=== PATIENT | male | born 1945 | race Caucasian/White ===

== ENCOUNTER 2016-10-27 04:50 | Observation (INO) | payer MEDICARE ==
[2016-10-27] MEDS ORDERED: NITROGLYCERIN OINT 1 INCH/GM PACKET TOPICAL STA (05:34)
[2016-10-27] MEDS ORDERED: SODIUM CHLORIDE 0.9% 1,000 ML IV STA (05:34)
[2016-10-27] MEDS ORDERED: MORPHINE SULFATE 4 MG/ML SYRINGE IV STA (05:34)
[2016-10-27] MEDS ORDERED: ONDANSETRON 4 MG/2 ML VIAL IVP STA (05:34)
[2016-10-27 06:14] LABS: Basophils # (A) 0.1 k/uL (0-0.2); Basophils % (A) 1 %; CH 31.7; CHCM 34.9; Eosinophils # (A) 0.1 k/uL (0-0.7); Eosinophils % (A) 2 %; HCT 42.9 % (39.0-53.0); HGB 14.3 gm/dL (13.0-17.5); Luc # (Auto) 0.22; Luc % (Auto) 3; Lymphocytes # (A) 1.7 k/uL (1.0-4.8); Lymphocytes % (A) 24 %; MCH 30.5 pg (25.0-35.0); MCHC 33.4 g/dL (31.0-37.0); MCV 91.1 fL (80.0-100.0); Mean Platelet Volume 7.6; Monocytes # (A) 0.4 k/uL (0-1.0); Monocytes % (A) 6 %; Neutrophils # (A) 4.5 k/uL (1.3-7.7); Neutrophils % (A) 64 %; RBC 4.71 m/uL (4.30-5.90); RDW 13.4 % (11.5-15.5); WBC (Perox) 7.21
[2016-10-27 06:23] LABS: ALT 36 U/L (21-72); AST 18 U/L (17-59); Alkaline Phosphatase 60 U/L (38-126); Amylase <30 U/L (30-110); Anion Gap 9 mmol/L; Blood Urea Nitrogen 17 mg/dL (9-20); Calcium 8.7 mg/dL (8.4-10.2); Carbon Dioxide 28 mmol/L (22-30); Chloride 102 mmol/L (98-107); Glucose 187 mg/dL (74-99); Magnesium 2.1 mg/dL (1.6-2.3); Non-African American GFR(MDRD) >60 (>60 ml/min/1.73 sqM); Potassium 3.2 mmol/L (3.5-5.1); Sodium 139 mmol/L (137-145); Total Bilirubin 0.8 mg/dL (0.2-1.3); Total Protein 6.5 g/dL (6.3-8.2)
[2016-10-27 06:31] LABS: Partial Thromboplastin Time 23.1 sec (22.0-30.0); Prothrombin Time 10.5 sec (9.0-12.0)
[2016-10-27 06:43] LABS: Creatine Kinase 135 U/L (55-170)
[2016-10-27 06:54] LABS: Creatine Kinase MB 1.5 ng/mL (0.0-2.4); Troponin I <0.012 ng/mL (0.000-0.034)
--- NOTE | 2016-10-27 06:58 | ED ---
Chest Pain HPI - General Chief Complaint: Chest Pain Stated Complaint: Chest Pain Time Seen by Provider: 10/27/16 05:28 Source: patient Mode of arrival: wheelchair Limitations: no limitations - History of Present Illness Initial Comments: S pain since 1 AM today woke him up from mom's sleep it's on the left side of his chest it does not radiate he denies any nausea denies any vomiting no cold sweats is quite sharp been happening every 15 minutes for duration less than 1 minute he denies any shortness of breath but chest pain does get worse with deep breaths. He denies any history of firm heart disease he does have a history of for stroke that was 2-3 years ago he does have a history of hypertension and chest pain right now is a 01/06 - Related Data Home Medications Medication Instructions Recorded Confirmed Cholecalciferol [Vitamin D3] 2,000 unit PO DAILY 10/31/14 10/27/16 Zolpidem Tartrate [Ambien] 10 mg PO HS 10/31/14 10/27/16 amLODIPine BESYLATE [Norvasc] 10 mg PO DAILY 10/31/14 10/27/16 metFORMIN HCL [Glucophage] 500 mg PO HS 10/31/14 10/27/16 Benazepril HCl [Lotensin] 40 mg PO DAILY 03/25/15 10/27/16 Bisoprolol-Hctz 5-6.25 mg [Ziac 1 each PO DAILY 03/25/15 10/27/16 5-6.25] Losartan-Hctz 50-12.5 mg [Hyzaar 1 each PO ONCE 03/25/15 10/27/16 50-12.5] Oxybutynin Chloride [Ditropan XL] 5 mg PO DAILY PRN 03/25/15 10/27/16 hydrALAZINE HCL 25 mg PO DAILY 10/27/16 10/27/16 Previous Rx's Medication Instructions Recorded Aspirin 81 mg PO DAILY #30 chewable 03/27/15 Clopidogrel Bisulfate [Plavix] 75 mg PO DAILY #30 tab 03/27/15 Allergies Allergy/AdvReac Type Severity Reaction Status Date / Time venom-wasp [wasp venom] Allergy Swelling Verified 10/27/16 04:59 Review of Systems ROS Statement: Those systems with pertinent positive or pertinent negative responses have been documented in the HPI. ROS Other: All systems not noted in ROS Statement are negative. EKG Findings - EKG Comments: EKG Findings:: It's sinus cardia with sinus arrhythmia, ventricular rate is 58 HI interval is 146 QRS duration is 98 QT/QTc is 460/451, review of this EKG reveals some T-wave flattening in lead [address] elevation or ST depression noticed this EKG Past Medical History Past Medical History: Cancer, CVA/TIA, Diabetes Mellitus, Hyperlipidemia, Hypertension, Osteoarthritis (OA) Additional Past Medical History / Comment(s): pt never takes bld sugar, sleeping disorder, skin lesions positive for basal cell ca (on face) History of Any Multi-Drug Resistant Organisms: None Reported Past Surgical History: Back Surgery, Hernia Repair Additional Past Surgical History / Comment(s): eye surgery - rt eye- metal sutures -per pt, skin lesions removed-basal cell ca,2013 excised lt eye lid lesion with rhomboid advancement flap closure, rt inguinal hernia repair, colonoscopy, lamenectomy Past Anesthesia/Blood Transfusion Reactions: No Reported Reaction Past Psychological History: No Psychological Hx Reported Additional Psychological History / Comment(s): pt is retired,lives at home with his , is independant. Smoking Status: Never smoker Past Alcohol Use History: Occasional Past Drug Use History: None Reported - Past Family History Father Family Medical History: Myocardial Infarction ([place]) Additional Family Medical History / Comment(s): age 59 from [place] Mother Family Medical History: Coronary Artery Disease (CAD), Diabetes Mellitus Additional Family Medical History / Comment(s): cabg General Exam - General Exam Comments Initial Comments: General: The patient is awake and alert, in no distress, and does not appear acutely ill. Skin: Skin is warm and dry and no rashes or lesions are noted. Eye: Pupils are equal, round and reactive to light, extra-ocular movements are intact; there is normal conjunctiva bilaterally. Ears, nose, mouth and throat: There are moist mucous membranes and no oral lesions. Neck: The neck is supple, there is no tenderness or JVD. Cardiovascular: There is a regular rate and rhythm. No murmur, rub or gallop is appreciated. Respiratory: To auscultation bilateral, no wheezing no rhonchi no distress respiratory alvares noticed Gastrointestinal: Soft, non-distended, non-tender abdomen without masses or organomegaly noted. There is no rebound or guarding present. Bowel sounds are unremarkable. Back: There is no tenderness to palpation in the midline. There is no obvious deformity. Musculoskeletal: Normal ROM, no tenderness, There is no pedal edema. There is no calf tenderness or swelling. No cords were appreciated. Neurological: CN II-XII intact, Cranial nerves III through XII are intact. There are no obvious motor or sensory deficits. Coordination appears grossly intact. Speech is normal. Psychiatric: Cooperative, appropriate mood & affect, normal judgment. Limitations: no limitations Course Vital Signs 10/27/16 10/27/16 04:57 06:05 Temperature 97.4 F L Pulse Rate 60 58 L Respiratory 18 18 Rate Blood Pressure 183/89 145/95 O2 Sat by Pulse 96 96 Oximetry Disposition Clinical Impression: Chest pain Disposition: ADMITTED IP TO THIS HOSP Condition: Good
--- NOTE | 2016-10-27 07:23 | XR ---
EXAMINATION TYPE: XR chest 2V DATE OF EXAM: 10/27/2016 6:32 AM COMPARISON: NONE INDICATION: Chest pain TECHNIQUE: Single frontal view of the chest is obtained. FINDINGS: The heart size is normal. The pulmonary vasculature is normal. The lungs are clear. Spondylosis through the thoracic spine. IMPRESSION: 1. No acute pulmonary process.
[2016-10-27] MEDS ORDERED: NITROGLYCERIN SL TABS 0.4 MG TAB SUBLINGUAL PRN (07:30)
[2016-10-27] MEDS ORDERED: HEPARIN SODIUM,PORCINE 5,000 UNIT/ML 1 ML VIAL IV PRN (07:36)
[2016-10-27] MEDS ORDERED: HEPARIN SODIUM,PORCINE 5,000 UNIT/ML 1 ML VIAL IV ONE (07:36)
[2016-10-27] MEDS ORDERED: HEPARIN SODIUM,PORCINE/D5W PMX 25,000 UNIT in DEXTROSE/WATER 1 500ML.BAG IV SCH (07:45)
[2016-10-27] MEDS ORDERED: metFORMIN 500 MG TAB PO SCH (08:00)
[2016-10-27] MEDS ORDERED: BISOPROLOL-HCTZ 5-6.25 MG 1 EACH TAB PO SCH (09:00)
[2016-10-27] MEDS ORDERED: CHOLECALCIFEROL 1,000 UNIT TAB PO SCH (09:00)
[2016-10-27] MEDS ORDERED: amLODIPine 10 MG TAB PO SCH (09:00)
[2016-10-27] MEDS ORDERED: LISINOPRIL 20 MG TAB PO SCH (09:00)
[2016-10-27] MEDS ORDERED: POTASSIUM CHLORIDE ER 20 MEQ TAB.ER PO STA (09:07)
--- NOTE | 2016-10-27 09:44 | CONS ---
DATE OF CONSULTATION: Mr. Gillespie is a 71-year-old male with a history of diabetes, hypertension, hyperlipidemia, who presented with symptoms of chest discomfort. The discomfort woke him up from sleep early this morning, lasted for about 3 hour, subsequently resolved. He came into the emergency room and subsequently admitted. He is reasonably active physically without any exertional chest pain. He denies any dyspnea on exertion. No dizziness. No palpitation. No syncope. No PND, orthopnea or peripheral edema. Apparently he ate chili last night. He has no prior cardiac history and had underwent stress test many years ago and that was unremarkable. His coronary risk factors are remarkable for hypertension, hyperlipidemia, and diabetes. He has not been taking a his statin because of myalgia. He is a nonsmoker. His medications include Ziac 5/6.25 mg daily, aspirin once a day, metformin 500 mg twice a day, amlodipine 5 mg daily, zolpidem, vitamin D and Lotensin 40 mg daily. REVIEW OF SYSTEMS: RESPIRATORY SYSTEM: He has no recent wheezing. No cough. No history of obstructive lung disease. GI SYSTEM: No recent GI bleeding. No peptic ulcer disease. SYSTEM: No dysuria or hematuria. NERVOUS SYSTEM: He has a prior history of stroke, no seizure. PHYSICAL EXAMINATION: He is a 71-year-old male, alert, oriented, in no apparent distress. Blood pressure 159/79 with the heart rate in the high 50s and 60s. HEAD: Normocephalic. EYES: Sclerae anicteric. NECK: Good upstroke. No bruit. No jugular venous distention. LUNGS: Clear to auscultation. HEART: Regular rate and rhythm. S1, S2, no S3, no S4, no murmur or rub. ABDOMEN: Soft, obese, nontender, positive bowel sounds. No organomegaly. EXTREMITIES: No edema. Intact distal pulses. Lab data revealed Troponin less than 0.012. Potassium of 3.2. BUN and creatinine 17 and 1.0. Hemoglobin of 14.3. EKG revealed sinus mechanism, normal axis and intervals with minor nonspecific ST-T wave changes. Chest x-ray revealed no acute changes. IMPRESSION: 1. Symptoms of chest discomfort, has atypical feature for ischemic heart disease, probably gastrointestinal in origin related to the chili he ate in a patient with multiple coronary risk factors. 2. History of hypertension. 3. Diabetes. 4. Hyperlipidemia, not treated because of myalgia. 5. Obesity. RECOMMENDATION: I will stop the heparin and proceed with stress echocardiogram. If there is no evidence of inducible ischemia, then no further cardiac workup will be needed. Thank you for this consult. We will follow with you.
[2016-10-27 12:21] LABS: Glucose,Whole Blood 155 mg/dL (75-99)
[2016-10-27 12:33] VITALS: BP 151/77; PULSE 76; RESP 18; TEMP 97.9
--- NOTE | 2016-10-27 12:36 | ECHOS ---
DATE OF SERVICE: 10/27/2016 AGE: 71Y SEX: M HT: 67" WT: 230 lbs. Protocol Marvin: X Others: Stress Echo Stage: 2 Dur. of Exercise: 3:30 *Heart Rate Blood Pressure *Rest: 66 Rest: 151/76 * *Max. Achieved: 149 Maximum BP: 220/110 85% PMHR: 127 100% PMHR: 149 *METS: - INDICATIONS: Chest pain. MEDICATIONS: - Patient was exercised for a total period of 3 minutes and 30 seconds. The peak heart rate of 149 was achieved. Maximum blood pressure of 220/110 mmHg was noted. Resting EKG shows normal sinus rhythm with ST-T changes noted in the inferolateral leads suggestive of ischemia. Intermittent wide QRS complex beats were noted, which are suggestive of probably PAC with aberrant conduction or PVC cannot be entirely excluded. During exercise about 1.[address] segment depression was noted. Intermittent PACs were noted. ST segment depression persisted for about 4 minutes in the postexercise period. In the postexercise period, intermittent PACs and short run of atrial tachycardia and occasional PVC's were noted. Echocardiographic images reveals a normal left ventricular chamber size with normal left ventricular systolic function. In the immediate postexercise period, normal increase in the wall thickness and contractility is noted. This stress echocardiographic study is negative for stress-induced ischemia. The EKG portion of the stress test is inconclusive to diagnose ischemia because of the resting ST segment abnormalities noted, so 1.[address] segment depression noted, which persisted for about 4 minutes in the postexercise period, intermittent PACs and intermittent wide QRS complex beats were noted. Beats are suggestive of probably aberrantly conducted beats. In the postexercise period, occasional runs of nonsustained atrial tachycardia were noted and occasional couplets were noted.
--- NOTE | 2016-10-27 12:47 | ECHOF ---
Referral Reason:cp MEASUREMENTS -------- HEIGHT: 170.2 cm WEIGHT: 104.3 kg BP: 145/57 RVIDd: 3.1 cm (< 3.3) IVSd: 1.3 cm (0.6 - 1.1) LVIDd: 4.5 cm (3.9 - 5.3) LVPWd: 1.3 cm (0.6 - 1.1) IVSs: 1.6 cm LVIDs: 2.9 cm LVPWs: 1.9 cm LA Diam: 3.8 cm (2.7 - 3.8) LAESV Index (A-L): 30.57 ml/m Ao Diam: 3.7 cm (2.0 - 3.7) AV Cusp: 1.8 cm (1.5 - 2.6) MV EXCURSION: 22.947 mm (> 18.000) MV EF SLOPE: 79 mm/s (70 - 150) EPSS: 0.8 cm MV E Chip: 0.84 m/s MV DecT: 203 ms MV A Chip: 0.59 m/s MV E/A Ratio: 1.42 AR PHT: 1249 ms FINDINGS -------- Sinus rhythm. This was a technically good study. The left ventricular size is normal. There is mild concentric left ventricular hypertrophy. Overall left ventricular systolic function is normal with, an EF between 55 - 60 %. The right ventricle is normal in size. LA is midly dilated 29-33ml/m2. The right atrium is normal in size. Aortic valve is trileaflet and is mildly thickened. There is mild aortic regurgitation. Mild mitral annular calcification present. There is trace mitral regurgitation. The tricuspid valve appears structurally normal. Trace/mild (physiologic) pulmonic regurgitation. The aortic root is dilated measuring 3.7cm. The pericardium is normal. CONCLUSIONS -------- 1. Sinus rhythm. 2. There is mild aortic regurgitation. 3. Mild mitral annular calcification present. 4. There is trace mitral regurgitation. 5. The tricuspid valve appears structurally normal. 6. Trace/mild (physiologic) pulmonic regurgitation. 7. The aortic root is dilated measuring 3.7cm. 8. The pericardium is normal. 9. This was a technically good study. 10. The left ventricular size is normal. 11. There is mild concentric left ventricular hypertrophy. 12. Overall left ventricular systolic function is normal with, an EF between 55 - 60 %. 13. The right ventricle is normal in size. 14. LA is midly dilated 29-33ml/m2. 15. The right atrium is normal in size. 16. Aortic valve is trileaflet and is mildly thickened. HALL MANAGER: Andie Mason RDCS
--- NOTE | 2016-10-27 20:56 | P.HPIM ---
History of Present Illness H&P Date: 10/27/16 Chief Complaint: Chest pain This is a history of physical a 71-year-old white male who is essentially admitted for significant chest pressure. It all started in the middle of the night last night as he was woke up in the middle night and was quite concerned. He has an underlying history of about CVA about 2 years ago. He has been doing quite well and has played golf recently without difficulty. No nausea or vomiting but significant chest pressure which is left-sided. No radiation of the jaw but it was more of a pressure and stabbing type pain. Because of his previous vascular history, he is appropriately admitted for treatment to rule out myocardial infarction. Review of Systems Constitutional: Denies chills, Denies fever Eyes: denies blurred vision, denies pain Ears, nose, mouth and throat: Denies headache, Denies sore throat Cardiovascular: Reports as per HPI, Reports chest pain Respiratory: Denies cough Gastrointestinal: Denies abdominal pain, Denies diarrhea, Denies nausea, Denies vomiting Musculoskeletal: Denies myalgias Past Medical History Past Medical History: Cancer, CVA/TIA, Diabetes Mellitus, Hyperlipidemia, Hypertension Additional Past Medical History / Comment(s): CVA 2014 with slight speech change , unable to tolerate statins-leg pain, sleeping disorder, skin basal cell ca ( on face) with removals, NIDDM type II, right eye blind. History of Any Multi-Drug Resistant Organisms: None Reported Past Surgical History: Back Surgery, Hernia Repair Additional Past Surgical History / Comment(s): eye surgery -left eye- metal sutures, 2013 excised lt eye lid lesion with rhomboid advancement flap closure, rt inguinal hernia repair, colonoscopy, lamenectomy, skin cancer removals. Past Anesthesia/Blood Transfusion Reactions: No Reported Reaction Past Psychological History: No Psychological Hx Reported Additional Psychological History / Comment(s): pt is retired,lives at home with his , is independant. Smoking Status: Never smoker Past Alcohol Use History: Occasional Additional Past Alcohol Use History / Comment(s): Pt states he drinks beer or rum/coke but less than 14 a week. Past Drug Use History: None Reported - Past Family History Father Family Medical History: Myocardial Infarction ([place]) Additional Family Medical History / Comment(s): age 59 from [place] Mother Family Medical History: Coronary Artery Disease (CAD), Diabetes Mellitus Additional Family Medical History / Comment(s): cabg Medications and Allergies Home Medications Medication Instructions Recorded Confirmed Type Cholecalciferol [Vitamin D3] 2,000 unit PO DAILY 10/31/14 10/27/16 History Zolpidem Tartrate [Ambien] 10 mg PO HS 10/31/14 10/27/16 History amLODIPine BESYLATE [Norvasc] 10 mg PO DAILY 10/31/14 10/27/16 History metFORMIN HCL [Glucophage] 500 mg PO BID 10/31/14 10/27/16 History Benazepril HCl [Lotensin] 40 mg PO DAILY 03/25/15 10/27/16 History Bisoprolol-Hctz 5-6.25 mg [Ziac 1 tab PO DAILY 03/25/15 10/27/16 History 5-6.25] Glucosamine Sulfate 500 mg PO DAILY 10/27/16 10/27/16 History Allergies Allergy/AdvReac Type Severity Reaction Status Date / Time venom-wasp [wasp venom] Allergy Swelling Verified 10/27/16 07:15 Physical Exam Vitals: Vital Signs Temp Pulse Pulse Resp BP BP Pulse Ox 10/27/16 12:00 97.9 F 76 18 151/77 95 10/27/16 08:25 97.6 F 54 L 16 159/79 96 10/27/16 08:00 54 L 16 10/27/16 07:54 97.4 F L 51 L 18 157/74 93 L Intake and Output 10/27/16 10/27/16 10/27/16 06:59 14:59 22:59 Intake Total 400 Balance 400 Intake: Oral 400 Other: Voiding Method Toilet Weight 104.5 kg Patient Weight 10/28/16 06:59 Weight 104.5 kg - Constitutional General appearance: obese - EENT Eyes: no abnormal pupil - Neck Neck: no lymphadenopathy, normal ROM - Respiratory Respiratory: bilateral: CTA - Cardiovascular Rhythm: regular Heart sounds: normal: S1, S2 - Gastrointestinal General gastrointestinal: soft, no tenderness - Integumentary Integumentary: no cellulitis - Musculoskeletal Musculoskeletal: gait normal - Psychiatric Psychiatric: appropriate affect, intact judgment & insight Results CBC & Chem 7: 10/27/16 05:59 10/27/16 05:59 Labs: Abnormal Lab Results - Last 24 Hours (Table) 02/28/17 Range/Units 12:18 POC Glucose (mg/dL) 155 H (75-99) mg/dL Thrombosis Risk Factor Assmnt - Choose All That Apply Any of the Below Risk Factors Present?: Yes Each Factor Represents 1 point: Obesity (BMI >25) Each Risk Factor Represents 2 Points: Age 61-74 years, Malignancy Other congenital or acquired thrombophilia - If yes, enter type in comment: No Thrombosis Risk Factor Assessment Total Risk Factor Score: 5 Thrombosis Risk Factor Assessment Level: High Risk Assessment and Plan (1) Chest pain Status: Acute (2) Essential hypertension Status: Acute Plan: We'll go ahead and rule out myocardial infarction. Housekeeping Cleaner consult. I suspect he will need appropriate stress testing. Anticipate discharge in next 24-48 hours. He is a full code at this time and I have discussed reconciling his medications. Time with Patient: Less than 30
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
[2016-10-27] MEDS ORDERED: ZOLPIDEM 10 MG TAB PO SCH (21:00)
[2016-10-28] MEDS ORDERED: ASPIRIN 325 MG TAB PO SCH (09:00)
== END 2016-10-27 13:25 | disposition home or self-care (01) ==
LOC: EC 04:50 → 3OBS 07:30
PROVIDERS: ADMIT Family Medicine; ATTEND Family Medicine
DX: R07.89 Other chest pain (principal); I10 Essential (primary) hypertension; E11.9 Type 2 diabetes mellitus without complications; E66.9 Obesity, unspecified; E78.5 Hyperlipidemia, unspecified; Z82.49 Family history of ischemic heart disease and other diseases of the circulatory system; Z86.73 Personal history of transient ischemic attack (TIA), and cerebral infarction without residual deficits; Z79.899 Other long term (current) drug therapy; Z79.84 Long term (current) use of oral hypoglycemic drugs; Z79.02 Long term (current) use of antithrombotics/antiplatelets; Z79.82 Long term (current) use of aspirin; M19.90 Unspecified osteoarthritis, unspecified site
CPT/HCPCS: 36415; 93005; 93017; 93306; 85379; 83880; 82150; 82550; 80053; 82553; 83690; 83735; 84484; 85025; 85610; 85730; 71020; 99285; 96361 ×2; G0378; C8928; J1644 ×2; Q9957; 93350; 96366

== ENCOUNTER 2019-05-18 20:32 | Observation (INO) | payer MEDICARE, OTHER ==
--- NOTE | 2019-05-18 21:05 | ED ---
General Adult HPI - General Chief complaint: Neuro Symptoms/Deficit Stated complaint: Stroke Time Seen by Provider: 05/18/19 21:03 Source: patient, family Mode of arrival: ambulatory Limitations: no limitations - History of Present Illness Initial comments: This patient is a 74-year-old old man who presents to be evaluated for right- sided weakness. The patient has history of previous stroke he states proximal 4 years ago when he had some mild dysarthria that has subsequently resolved. He states that he was in his usual state of health until about 4 days ago when he noticed he was having pressure type headache the left frontal area. He states that it is moderate, constant, and he has not noted worsening or relieving factors. He attributed to his sinuses. Tonight proximal he 7 PM, patient states that he was having some numbness or tingling that was on the right side of his mouth. He states that it had been there a little bit yesterday but he attributed that to having some dental work done. Patient states that the sensation seemed to go to his right arm and right leg, and then he had difficulty in fastening his pants after using the bathroom. The patient's was a golf outing and when she returned he told her about these symptoms and she brought him here for evaluation. The patient states that he is now feeling back to his baseline in terms of the tingling and his arm coordination. No change in vision, speech or swallowing. Patient has no chest pain or dyspnea. No difficulty extremity symptoms now. Declines analgesia at initial history and physical. Onset/Timin -: hour(s) Location: right, upper extremity, lower extremity Radiation: non-radiation Consistency: now resolved Improves with: none Worsens with: none Associated Symptoms: headaches Treatments Prior to Arrival: none - Related Data Home Medications Medication Instructions Recorded Confirmed Zolpidem Tartrate [Ambien] 10 mg PO HS 10/31/14 05/18/19 amLODIPine BESYLATE [Norvasc] 10 mg PO DAILY 10/31/14 05/18/19 metFORMIN HCL [Glucophage] 1,000 mg PO BID 10/31/14 05/18/19 Bisoprolol-Hctz 5-6.25 mg [Ziac 1 tab PO DAILY 03/25/15 05/18/19 5-6.25 MG] Cholecalciferol [Vitamin D3 (25 1,000 unit PO DAILY 05/18/19 05/18/19 Mcg = 1000 Iu)] Losartan Potassium 100 mg PO DAILY 05/18/19 05/18/19 Potassium Chloride ER [K-Dur 20] 20 meq PO DAILY 05/18/19 05/18/19 Tamsulosin [Flomax] 0.4 mg PO HS 05/18/19 05/18/19 Allergies Allergy/AdvReac Type Severity Reaction Status Date / Time venom-wasp [wasp venom] Allergy Swelling Verified 05/18/19 21:13 Review of Systems ROS Statement: Those systems with pertinent positive or pertinent negative responses have been documented in the HPI. ROS Other: All systems not noted in ROS Statement are negative. 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 Denies: vision change Respiratory: Denies: cough, dyspnea Cardiovascular: Denies: chest pain, palpitations, edema, syncope Gastrointestinal: Denies: abdominal pain, vomiting, diarrhea Genitourinary: Denies: dysuria, hematuria Musculoskeletal: Denies: back pain Skin: Denies: rash Neurological: Reports: as per HPI, headache, weakness, paresthesias Past Medical History Past Medical History: Cancer, CVA/TIA, Diabetes Mellitus, Hyperlipidemia, Hypertension, Sleep Apnea/CPAP/BIPAP Additional Past Medical History / Comment(s): CVA 2014 with slight speech change, unable to tolerate statins-leg pain, sleeping disorder, 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 History of Any Multi-Drug Resistant Organisms: None Reported Past Surgical History: Back Surgery, Bladder Surgery, Hernia Repair, Orthopedic Surgery Additional Past Surgical History / Comment(s): eye surgery -left eye- metal sutures, 2013 excised lt eye lid lesion with rhomboid advancement flap closure, rt inguinal hernia repair, colonoscopy, lamenectomy, skin cancer removals. Past Anesthesia/Blood Transfusion Reactions: No Reported Reaction Past Psychological History: No Psychological Hx Reported Smoking Status: Never smoker Past Alcohol Use History: Occasional Past Drug Use History: None Reported - Past Family History Father Family Medical History: Myocardial Infarction ([place]) Additional Family Medical History / Comment(s): age 59 from [place] Mother Family Medical History: Coronary Artery Disease (CAD), Diabetes Mellitus Additional Family Medical History / Comment(s): cabg General Exam Limitations: no limitations General appearance: alert, in no apparent distress Head exam: Present: atraumatic, normocephalic Eye exam: Present: normal appearance, EOMI. Absent: scleral icterus, conjunctival injection ENT exam: Present: mucous membranes dry Neck exam: Present: normal inspection, full ROM. Absent: meningismus Respiratory exam: Present: normal lung sounds bilaterally. Absent: respiratory distress, wheezes, rales, rhonchi, stridor Cardiovascular Exam: Present: regular rate, normal rhythm, normal heart sounds. Absent: systolic murmur, diastolic murmur, rubs, gallop GI/Abdominal exam: Present: soft. Absent: distended, tenderness, guarding, rebound, rigid, mass Extremities exam: Present: normal inspection, normal capillary refill. Absent: pedal edema, calf tenderness Back exam: Present: normal inspection. Absent: CVA tenderness (R), CVA tender ness (L) Neurological exam: Present: alert, oriented X3, CN II-XII intact. Absent: motor sensory deficit Skin exam: Present: warm, dry, intact, normal color. Absent: rash Course Vital Signs 05/18/19 05/18/19 05/18/19 20:35 20:49 21:01 Temperature 98.2 F Pulse Rate 72 72 69 Respiratory 16 18 18 Rate Blood Pressure 184/83 149/77 157/72 O2 Sat by Pulse 100 96 95 Oximetry EKG Findings - EKG Results: EKG: interpreted by NOLAN, sinus rhythm (With sinus arrhythmia, rate 73 bpm), normal axis, normal QRS, normal ST/T, no acute changes Medical Decision Making - Lab Data Result diagrams: 05/18/19 20:57 05/18/19 20:57 Lab Results 05/18/19 05/18/19 05/18/19 Range/Units 20:57 20:57 20:57 WBC 10.1 (3.8-10.6) k/uL RBC 5.44 (4.30-5.90) m/uL Hgb 17.3 (13.0-17.5) gm/dL Hct 50.1 (39.0-53.0) % MCV 92.1 (80.0-100.0) fL MCH 31.7 (25.0-35.0) pg MCHC 34.4 (31.0-37.0) g/dL RDW 16.5 H (11.5-15.5) % Plt Count 186 (150-450) k/uL Neutrophils % 81 % Lymphocytes % 11 % Monocytes % 5 % Eosinophils % 1 % Basophils % 1 % Neutrophils # 8.1 H (1.3-7.7) k/uL Lymphocytes # 1.2 (1.0-4.8) k/uL Monocytes # 0.5 (0-1.0) k/uL Eosinophils # 0.1 (0-0.7) k/uL Basophils # 0.1 (0-0.2) k/uL Anisocytosis Slight PT 9.7 (9.0-12.0) sec INR 0.9 (<1.2) APTT 22.0 (22.0-30.0) sec Sodium 138 (137-145) mmol/L Potassium 3.6 (3.5-5.1) mmol/L Chloride 101 (98-107) mmol/L Carbon Dioxide 24 (22-30) mmol/L Anion Gap 13 mmol/L BUN 23 H (9-20) mg/dL Creatinine 1.16 (0.66-1.25) mg/dL Est GFR (CKD-EPI)AfAm 72 (>60 ml/min/1.73 sqM) Est GFR (CKD-EPI)NonAf 62 (>60 ml/min/1.73 sqM) Glucose 294 H (74-99) mg/dL POC Glucose (mg/dL) (75-99) mg/dL POC Glu Metal Bench Patternmaker ID Calcium 9.5 (8.4-10.2) mg/dL Total Bilirubin 0.5 (0.2-1.3) mg/dL AST 26 (17-59) U/L ALT 35 (21-72) U/L Alkaline Phosphatase 80 (38-126) U/L Troponin I (0.000-0.034) ng/mL Total Protein 6.9 (6.3-8.2) g/dL Albumin 4.4 (3.5-5.0) g/dL Urine Color Urine Appearance (Clear) Urine pH (5.0-8.0) Ur Specific [place] (1.001-1.035) Urine Protein (Negative) Urine Glucose (UA) (Negative) Urine Ketones (Negative) Urine Blood (Negative) Urine Nitrite (Negative) Urine Bilirubin (Negative) Urine Urobilinogen (<2.0) mg/dL Ur Leukocyte Esterase (Negative) Urine RBC (0-5) /hpf Urine WBC (0-5) /hpf Ur Squamous Epith Cells (0-4) /hpf Urine Bacteria (None) /hpf Hyaline Casts (0-2) /lpf Urine Mucus (None) /hpf Urine Sperm (None) /hpf 05/18/19 05/18/19 05/18/19 Range/Units 20:57 21:04 22:00 WBC (3.8-10.6) k/uL RBC (4.30-5.90) m/uL Hgb (13.0-17.5) gm/dL Hct (39.0-53.0) % MCV (80.0-100.0) fL MCH (25.0-35.0) pg MCHC (31.0-37.0) g/dL RDW (11.5-15.5) % Plt Count (150-450) k/uL Neutrophils % % Lymphocytes % % Monocytes % % Eosinophils % % Basophils % % Neutrophils # (1.3-7.7) k/uL Lymphocytes # (1.0-4.8) k/uL Monocytes # (0-1.0) k/uL Eosinophils # (0-0.7) k/uL Basophils # (0-0.2) k/uL Anisocytosis PT (9.0-12.0) sec INR (<1.2) APTT (22.0-30.0) sec Sodium (137-145) mmol/L Potassium (3.5-5.1) mmol/L Chloride (98-107) mmol/L Carbon Dioxide (22-30) mmol/L Anion Gap mmol/L BUN (9-20) mg/dL Creatinine (0.66-1.25) mg/dL Est GFR (CKD-EPI)AfAm (>60 ml/min/1.73 sqM) Est GFR (CKD-EPI)NonAf (>60 ml/min/1.73 sqM) Glucose (74-99) mg/dL POC Glucose (mg/dL) 320 H (75-99) mg/dL POC Glu Metal Bench Patternmaker Marlon Patel Calcium (8.4-10.2) mg/dL Total Bilirubin (0.2-1.3) mg/dL AST (17-59) U/L ALT (21-72) U/L Alkaline Phosphatase (38-126) U/L Troponin I <0.012 (0.000-0.034) ng/mL Total Protein (6.3-8.2) g/dL Albumin (3.5-5.0) g/dL Urine Color Yellow Urine Appearance Clear (Clear) Urine pH 5.5 (5.0-8.0) Ur Specific [place] 1.017 (1.001-1.035) Urine Protein 1+ H (Negative) Urine Glucose (UA) 4+ H (Negative) Urine Ketones Negative (Negative) Urine Blood Moderate H (Negative) Urine Nitrite Negative (Negative) Urine Bilirubin Negative (Negative) Urine Urobilinogen <2.0 (<2.0) mg/dL Ur Leukocyte Esterase Small H (Negative) Urine RBC 6 H (0-5) /hpf Urine WBC 20 H (0-5) /hpf Ur Squamous Epith Cells <1 (0-4) /hpf Urine Bacteria Rare H (None) /hpf Hyaline Casts 4 H (0-2) /lpf Urine Mucus Rare H (None) /hpf Urine Sperm Rare (None) /hpf Disposition Clinical Impression: TIA (transient ischemic attack), Hyperglycemia due to type 2 diabetes mellitus, Hypertension Disposition: ADMITTED IP TO THIS HOSP Condition: Fair Is patient prescribed a controlled substance at d/c from ED?: No Referrals: Aki Pelaez DO [Primary Care Provider] - 1-2 days
[2019-05-18 21:07] LABS: Glucose,Whole Blood 320 mg/dL (75-99)
[2019-05-18 21:41] LABS: INR 0.9 (<1.2); Prothrombin Time 9.7 sec (9.0-12.0)
[2019-05-18 21:45] LABS: Albumin 4.4 g/dL (3.5-5.0); Calcium 9.5 mg/dL (8.4-10.2); Potassium 3.6 mmol/L (3.5-5.1); Total Bilirubin 0.5 mg/dL (0.2-1.3); Total Protein 6.9 g/dL (6.3-8.2)
[2019-05-18 21:49] LABS: Anisocytosis Slight; Basophils # (A) 0.1 k/uL (0-0.2); Basophils % (A) 1 %; Eosinophils # (A) 0.1 k/uL (0-0.7); Eosinophils % (A) 1 %; HCT 50.1 % (39.0-53.0); HGB 17.3 gm/dL (13.0-17.5); Lymphocytes # (A) 1.2 k/uL (1.0-4.8); Lymphocytes % (A) 11 %; MCH 31.7 pg (25.0-35.0); MCHC 34.4 g/dL (31.0-37.0); MCV 92.1 fL (80.0-100.0); Monocytes # (A) 0.5 k/uL (0-1.0); Monocytes % (A) 5 %; Neutrophils # (A) 8.1 k/uL (1.3-7.7); Neutrophils % (A) 81 %; Platelet Count 186 k/uL (150-450); RBC 5.44 m/uL (4.30-5.90); RDW 16.5 % (11.5-15.5); WBC 10.1 k/uL (3.8-10.6)
--- NOTE | 2019-05-18 21:49 | CT ---
EXAMINATION TYPE: CT brain wo con DATE OF EXAM: 05/18/2019 COMPARISON: 03/26/2015 HISTORY: Right sided numbness CT DLP: 1146.4 mGycm Automated exposure control for dose reduction was used. FINDINGS: There is cerebral cortical atrophy. There is moderate patchy hypodensity in the periventricular white matter. There is 2.5 cm area of cortical hypodensity left occipital lobe. There is no midline shift. There is no mass effect. There is no sign of intracranial hemorrhage. The calvarium is intact. IMPRESSION: EXTENSIVE CHRONIC SMALL VESSEL ISCHEMIA THAT HAS PROGRESSED SLIGHTLY COMPARED TO OLD EXAM. THERE IS O LD LEFT OCCIPITAL LOBE CORTICAL INFARCT THAT IS A CHANGE COMPARED TO OLD EXAM.
--- NOTE | 2019-05-18 21:52 | XR ---
EXAMINATION TYPE: XR chest 2V DATE OF EXAM: 05/18/2019 COMPARISON: 08/12/2017 HISTORY: Altered mental status TECHNIQUE: Frontal and lateral views of the chest are obtained. FINDINGS: Heart and mediastinum are normal. Lungs are clear. There are chest leads. There is spurrin g in the thoracic spine. IMPRESSION: No active cardiopulmonary disease. Normal heart. No change.
[2019-05-18 22:38] LABS: Appearance,Urine Clear (Clear); Bacteria,Urine Rare /hpf; Bilirubin,Urine Negative (Negative); Blood,Urine Moderate (Negative); Color,Urine Yellow; Glucose,Urine (UA) 4+ (Negative); Hyaline Casts,Urine 4 /lpf (0-2); Ketones,Urine Negative (Negative); Leukocyte Esterase,Urine Small (Negative); Mucus,Urine Rare /hpf; Nitrite,Urine Negative (Negative); PH, Urine 5.5 (5.0-8.0); Protein,Urine 1+ (Negative); RBC,Urine 6 /hpf (0-5); Specific Gravity,Urine 1.017 (1.001-1.035); Sperm,Urine Rare /hpf; Squamous Epithelial Cell,Urine <1 /hpf (0-4); Urobilinogen,Urine <2.0 mg/dL (<2.0); WBC,Urine 20 /hpf (0-5)
[2019-05-18] MEDS: INSULIN REGULAR 100 UNIT/ML VIAL SQ STA ×2 (23:07→23:11)
[2019-05-18] MEDS ORDERED: metFORMIN 500 MG TAB PO STA (23:10)
[2019-05-18] MEDS ORDERED: ASPIRIN 325 MG TAB PO STA (23:12)
[2019-05-18] MEDS: SODIUM CHLORIDE 0.9% 1,000 ML IV SCH (23:42)
[2019-05-19 00:21] VITALS: BMI 35.4
[2019-05-19] MEDS: DOCUSATE 100 MG CAP PO SCH ×4 (00:22→23:06)
[2019-05-19] MEDS: ZOLPIDEM 10 MG TAB PO PRN ×2 (00:48→20:35)
[2019-05-19 03:28] LABS: Cholesterol 216 mg/dL (<200); HDL Cholesterol 39 mg/dL (40-60); LDL Cholesterol,Calculated 122 mg/dL (0-99); Triglycerides 275 mg/dL (<150)
[2019-05-19 06:20] LABS: Glucose,Whole Blood 182 mg/dL (75-99)
[2019-05-19] MEDS: INSULIN ASPART (NovoLOG) 100 UNIT/ML VIAL SQ SCH ×4 (06:24→20:54)
[2019-05-19 07:52] LABS: Glucose,Whole Blood 184 mg/dL (75-99)
--- NOTE | 2019-05-19 08:18 | CT ---
EXAMINATION TYPE: CODE STROKE: CT brain wo contr DATE OF EXAM: 05/19/2019 COMPARISON: 05/18/2019 HISTORY: Code Stroke CT DLP: [address] of the brain was performed. The ventricles, basal cisterns and sulci overlying the cerebral convexities demonstrate mild enlargem ent. There is no evidence for intracranial hemorrhage or sulcal effacement. There is decreased attenuation about the periventricular white matter and deep white matter of both c erebral hemispheres, compatible with chronic small vessel ischemia. Differential diagnosis does inclu de demyelination. No mass effects are seen.No midline shift. Osseous calvarium is intact. If symptoms persist consider MRI. IMPRESSION: 1. Age related atrophic and chronic small vessel ischemic change without acute intracranial process s een at this time.
[2019-05-19] MEDS ORDERED: CLOPIDOGREL 75 MG TAB PO STA (09:02)
[2019-05-19] MEDS: amLODIPine 10 MG TAB PO SCH (09:17)
[2019-05-19] MEDS: LOSARTAN 50 MG TAB PO SCH (09:17)
[2019-05-19] MEDS: BISOPROLOL-HCTZ 5-6.25 MG 1 EACH TAB PO SCH (09:17)
[2019-05-19] MEDS: FAMOTIDINE 20 MG TAB PO SCH ×2 (09:18→20:34)
[2019-05-19] MEDS: CHOLECALCIFEROL 1,000 UNIT TAB PO SCH (09:18)
[2019-05-19] MEDS: ATORVASTATIN 80 MG TAB PO SCH (09:18)
[2019-05-19] MEDS: POTASSIUM CHLORIDE ER 20 MEQ TAB.ER PO SCH (09:18)
[2019-05-19] MEDS: metFORMIN 500 MG TAB PO SCH ×2 (09:18→20:54)
[2019-05-19] MEDS: SODIUM CHLORIDE 0.9% 1,000 ML IV SCH ×2 (09:19→16:59)
--- NOTE | 2019-05-19 09:20 | CT ---
EXAMINATION TYPE: CODE STROKE: CTA head neck DATE OF EXAM: 05/19/2019 COMPARISON: None HISTORY: CODE STROKE CT DLP: 456 mGycm CONTRAST: Performed without and with IV Contrast, patient injected with 65 ML mL of Isovue 370. Combination Contrast CTA cervical carotids and [place] CTA cervical carotids with 3-D recons truction Contrast CTA of the cervical carotids was performed 3-D reconstruction imaging obtained at a separate workstation. Right carotid system: Mild plaque is seen of the right common carotid artery. There is mild plaque a lso noted at the carotid bulb and proximal ICA. No significant diameter reduction. ECA is patent. Right vertebral artery appears unremarkable. Left carotid system: Mild plaque is seen of the left common carotid artery. Extensive tortuosity lef t carotid artery. There is moderate plaque also noted at the carotid bulb and proximal ICA. At least 70% diameter reduction suggested. ECA is patent. Left vertebral artery appears unremarkable. IMPRESSION: 1. Tortuosity left internal carotid artery. Greater than 70% stenosis suggested. 2. No hemodynamically significant stenosis of the right carotid system. CTA [place] with 3-D reconstruction Contrast CTA of the [place] was performed 3-D reconstruction imaging obtained at a separate workstation. Vertebrobasilar system as well as intracranial portions of the internal carotid arteries and their ma [place]ma tributaries are patent. I do not see evidence for sizable aneurysm or vascular malformation. Pl ease note MRI provides greater sensitivity and specificity. Visualized brain appears grossly unremar kable. IMPRESSION: 1. No significant abnormality.
[2019-05-19] MEDS: ASPIRIN 325 MG TAB PO SCH (09:30)
--- NOTE | 2019-05-19 12:07 | P.CNNES ---
History of Present Illness Consult date: 05/19/19 Requesting physician: Antwan Servin Reason for Consult: TIA Chief complaint: Right facial and U&LE numbness History of Present Illness: This is a 74 LH male whose vascular risk factors include age, HTN, DM and HL and h/o CVA with mild residual dysarthria. Patient states he does not take any anti platelets or anticoagulants at home. He had a left frontal/periorbital pain for 4 days, which was new. He went to the dentist 2-3 days ago and had a temporary crown put in. He had local anesthesia for the procedure. Since the procedure, he had on and off numbness around and inside the right side of the mouth, so he thought it was the lingering effect of the anesthetic. On 05/18/19 7pm, he went to the bathroom and noted difficulty fastening his pants with then right arm and leg numbness, so came into the ER for evaluation. By the time he presented to the ER, his sensory symptom had resolved. However, earlier this morning around 8am, he noted the same symptom again. Code stroke was called. CT Head was stable. No ICH. CTA Head/Neck did show tortuous LICA with likely >70% stenosis. Interventional neurology started patient on DAPT. He is once again neurologically asymptomatic. He cannot undergo MRI due to steel sutures in the right eye that were put in after a nail was lodged into his eye during an accident. Review of Systems 14-point ROS performed and as per HPI. Neurologically, patient denies decreased level or loss of consciousness, seizure, changes in vision, diplopia, amaurosis, changes in hearing, facial droop, ptosis, vertigo, hearing loss, tinnitus, dysarthria, dysphagia, aphasia, other focal numbness/weakness not mentioned above, tremors, bowel/bladder incontinence or ataxia. 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 History of Any Multi-Drug Resistant Organisms: None Reported Past Surgical History: Back Surgery, Bladder Surgery, Hernia Repair, Orthopedic Surgery Additional Past Surgical History / Comment(s): eye surgery -left eye- metal sutures, 2013 excised lt eye lid lesion with rhomboid advancement flap closure, rt inguinal hernia repair, colonoscopy, lamenectomy, skin cancer removals. Past Anesthesia/Blood Transfusion Reactions: No Reported Reaction Past Psychological History: No Psychological Hx Reported Additional Psychological History / Comment(s): pt is retired,lives at home with his , is independant. Smoking Status: Never smoker Past Alcohol Use History: Occasional Additional Past Alcohol Use History / Comment(s): Pt states he drinks beer or rum/coke but less than 14 a week. Past Drug Use History: None Reported - Past Family History Father Family Medical History: Myocardial Infarction ([place]) Additional Family Medical History / Comment(s): age 59 from [place] Mother Family Medical History: Coronary Artery Disease (CAD), Diabetes Mellitus Additional Family Medical History / Comment(s): cabg Medications and Allergies Home Medications Medication Instructions Recorded Confirmed Type Zolpidem Tartrate [Ambien] 10 mg PO HS 10/31/14 05/18/19 History amLODIPine BESYLATE [Norvasc] 10 mg PO DAILY 10/31/14 05/18/19 History metFORMIN HCL [Glucophage] 1,000 mg PO BID 10/31/14 05/18/19 History Bisoprolol-Hctz 5-6.25 mg [Ziac 1 tab PO DAILY 03/25/15 05/18/19 History 5-6.25 MG] Cholecalciferol [Vitamin D3 (25 1,000 unit PO DAILY 05/18/19 05/18/19 History Mcg = 1000 Iu)] Losartan Potassium 100 mg PO DAILY 05/18/19 05/18/19 History Potassium Chloride ER [K-Dur 20] 20 meq PO DAILY 05/18/19 05/18/19 History Tamsulosin [Flomax] 0.4 mg PO HS 05/18/19 05/18/19 History Allergies Allergy/AdvReac Type Severity Reaction Status Date / Time venom-wasp [wasp venom] Allergy Swelling Verified 05/18/19 21:13 Physical Examination - Vital Signs Vital Signs: Vital Signs Temp Pulse Pulse Resp BP BP Pulse Ox 05/19/19 10:16 97.6 F 60 16 177/86 97 05/19/19 08:16 97.5 F L 54 L 16 182/84 95 05/19/19 08:00 97.5 F L 61 16 173/98 96 05/19/19 04:00 98.3 F 58 L 18 169/94 94 L 05/19/19 00:00 98.5 F 66 18 176/89 93 L 05/18/19 23:38 98 F 59 L 18 185/75 96 05/18/19 23:31 98.2 F 18 176/89 93 L 05/18/19 21:01 69 18 157/72 95 05/18/19 20:49 72 18 149/77 96 05/18/19 20:35 98.2 F 72 16 184/83 100 Intake and Output 05/18/19 05/19/19 05/19/19 22:59 06:59 14:59 Intake Total 60 Balance 60 Intake: Oral 60 Other: Voiding Method Toilet # Voids 1 Weight 102.5 kg 102.5 kg Gen NAD Pleasant and cooperative HEENT NCAT Sclera without icterus O/P clear Neck Supple No carotid bruit Cor RRR no m/r/g Lungs CTAB Abd Soft NTND +BS Ext Warm to touch No edema Neuro MS A+Ox4 Normal fluency Able to follow all commands CN Pupils reactive Blinks to threat bilaterally no APD EOMI no nystagmus or DERECK No facial asymmetry [place]'s symmetric Hearing intact to normal voice bilaterally Speech minimally dysarthric Equal elevation of palate Tongue midline Sym shrug and SCM bilaterally Motor Normal bulk/tone No pronator or leg drift No tremors Strength 5/5 sym throughout Sens Intact to LT x4 No neglect or extinction Coord No dysmetria on FTN bilaterally DTRs 2+/4 sym throughout Toes downgoing bilaterally No clonus at achilles Gait Deferred NIHSS 10=1 total 1 Results - Laboratory Findings CBC and BMP: 05/18/19 20:57 05/18/19 20:57 Abnormal Lab Findings: Abnormal Labs 05/18/19 05/18/19 05/18/19 20:57 20:57 21:04 RDW 16.5 H Neutrophils # 8.1 H BUN 23 H Glucose 294 H POC Glucose (mg/dL) 320 H Triglycerides Cholesterol LDL Cholesterol, Calc HDL Cholesterol Urine Protein Urine Glucose (UA) Urine Blood Ur Leukocyte Esterase Urine RBC Urine WBC Urine Bacteria Hyaline Casts Urine Mucus 05/18/19 05/19/19 05/19/19 22:00 02:55 06:19 RDW Neutrophils # BUN Glucose POC Glucose (mg/dL) 182 H Triglycerides 275 H Cholesterol 216 H LDL Cholesterol, Calc 122 H HDL Cholesterol 39 L Urine Protein 1+ H Urine Glucose (UA) 4+ H Urine Blood Moderate H Ur Leukocyte Esterase Small H Urine RBC 6 H Urine WBC 20 H Urine Bacteria Rare H Hyaline Casts 4 H Urine Mucus Rare H 05/19/19 07:49 RDW Neutrophils # BUN Glucose POC Glucose (mg/dL) 184 H Triglycerides Cholesterol LDL Cholesterol, Calc HDL Cholesterol Urine Protein Urine Glucose (UA) Urine Blood Ur Leukocyte Esterase Urine RBC Urine WBC Urine Bacteria Hyaline Casts Urine Mucus - Diagnostic Findings Additional findings: CT Head wo cont 05/19/19. Stable c/w 05/18/19 exam. No ICH. CTA Head/Neck 05/19/19. Tortuous LICA >70% stenosis. No LVO. CT Head wo cont 05/18/19. Extensive subcortical white matter changes c/w severe chronic small vessel disease. Old left occipital ischemic infarct. I have reviewed neuroimages myself. Assessment and Plan Assessment: Recurrent right sided TIA with LICA >70% stenosis on CTA Plan: -Cannot undergo MRI due to steel sutures in right eye -CTA results d/w patient -Recommend vascular surgery consultation for LICA >70% stenosis -Continue aspirin and clopidogrel pending vascular surgery consult -TTE -LDL 122 not at goal. On max atorvastatin 80mg po qhs -May treat BP to normotensive range as he is currently neurologically asymptomatic but avoid hypotension -PT/OT/SP per protocol -Stroke education given -DVT prophylaxis -d/w patient in detail. All questions answered -Neurology will be available again on 05/22/19. Thank you for this consultation. Please call with ?. Time with Patient: Greater than 30 (Time spent in direct patient care, greater than 50% of which was spent in [id number] counseling and coordination of care: 70 minutes)
[2019-05-19 12:14] LABS: Glucose,Whole Blood 185 mg/dL (75-99)
--- NOTE | 2019-05-19 13:40 | P.HPIM ---
History of Present Illness H&P Date: 05/19/19 Chief Complaint: TIA. This is a 74-year-old male one of Dr. Pelaez with a previous medical history significant for hypertension and hypertensive cardio vascular disease, hyperlipidemia, history of diabetes mellitus type 2, enlarged prostate, insomnia, obesity, patient presented to the emergency department at [facility] today with increased right facial numbness as well as right arm and right leg numbness, patient stated that this is started about a month ago when he was [place] in [place] when he developed to have a significant numbness to the angle of the mouth and right side this is lasts for a few seconds and disappeared after that however a week ago developed to have an increased numbness as well as increased numbness in the right arm or right leg yesterday got worse and asked his to drive him to the ER for evaluation he was seen in the emergency department and underwent computed tomography scan of the brain did not show any evidence of acute abnormalities, it did show an old left occipital infarct and a chronic white matter changes, however because of the presentation he was admitted to the hospital for evaluation of TIA/CVA, neuro check was obtained neurology consultation was obtained along with echocardiogram. Today in the morning while the patient on the floor he developed to have a significant numbness on the right side of the body a code stroke was called and the patient underwent CT scan of the brain that was negative for acute infarct or bleed CT angiography showed greatr than 70% stenosis of the left carotid artery he was seen in consultation by neurology was placed on aspirin and Plavix and he was recommended to see a vascular surgeon with risk factor modification he was started on statin in the form of Lipitor 80 mg orally once every day. Review of Systems Constitutional: Reports weight gain, Denies chills, Denies chronic headaches, Denies lethargy, Denies malaise, Denies weakness Eyes: right loss of vision (Secondary to nail in the right eye followed by a retinal detachment years later.) Ears: deny: decreased hearing Ears, nose, mouth and throat: Reports vertigo, Denies dysphagia, Denies neck lump, Denies sore throat Cardiovascular: Reports decreased exercise tolerance, Reports dyspnea on exertion, Reports lightheadedness, Denies chest pain, Denies orthopnea, Denies rapid heart beat, Denies shortness of breath, Denies syncope Respiratory: Reports sleep apnea, Reports snoring, Denies congestion, Denies cough, Denies cough with sputum, Denies home oxygen, Denies wheezing Gastrointestinal: Denies abdominal pain, Denies bloating, Denies BRBPR, Denies heartburn, Denies loss of appetite, Denies melena, Denies nausea, Denies vomiting Genitourinary: Reports nocturia, Denies dysuria Musculoskeletal: Denies myalgias Musculoskeletal: absent: ankle pain, ankle stiffness, ankle swelling, elbow pain, elbow stiffness, elbow swelling, foot pain, foot stiffness, foot swelling, hand pain, hand stiffness, hand swelling, hip pain, hip stiffness, hip swelling, knee pain, knee stiffness, knee swelling, shoulder pain, shoulder stiffness, shoulder swelling, wrist pain, wrist stiffness, wrist swelling Integumentary: Denies pruritus, Denies rash Neurological: Reports numbness, Reports tingling, Denies change in speech, Denies confusion, Denies gait dysfunction, Denies migraines, Denies motor disturbance, Denies transient paralysis, Denies tremors, Denies vertigo, Denies weakness, Denies visual changes Psychiatric: Denies anxiety, Denies depression Endocrine: Denies fatigue, Denies weight change Past Medical History Past Medical History: Cancer, CVA/TIA, Diabetes Mellitus, Hyperlipidemia, Hypertension, Sleep Apnea/CPAP/BIPAP Additional Past Medical History / Comment(s): CVA 2014 with slight speech change, unable to tolerate statins-leg pain, sleeping disorder, 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 History of Any Multi-Drug Resistant Organisms: None Reported Past Surgical History: Back Surgery, Bladder Surgery, Hernia Repair, Orthopedic Surgery Additional Past Surgical History / Comment(s): eye surgery -left eye- metal sutures, 2013 excised lt eye lid lesion with rhomboid advancement flap closure, rt inguinal hernia repair, colonoscopy, lamenectomy, skin cancer removals. Past Anesthesia/Blood Transfusion Reactions: No Reported Reaction Past Psychological History: No Psychological Hx Reported Additional Psychological History / Comment(s): pt is retired,lives at home with his , is independant. Smoking Status: Never smoker Past Alcohol Use History: Occasional Additional Past Alcohol Use History / Comment(s): Pt states he drinks beer or rum/coke but less than 14 a week. Past Drug Use History: None Reported - Past Family History Father Family Medical History: Myocardial Infarction ([place]) (Father at age of 59 from [place].) Additional Family Medical History / Comment(s): age 59 from [place] Mother Family Medical History: Coronary Artery Disease (CAD) (Mother at age of 83 from CAD and congestive heart failure and she was diabetic.), Diabetes Mellitus Additional Family Medical History / Comment(s): cabg Sister(s) Family Medical History: No Reported History (Patient has 2 sisters no major medical problems.) Son(s) Family Medical History: No Reported History (Patient has 2 sons no major medical problems.) Medications and Allergies Home Medications Medication Instructions Recorded Confirmed Type Zolpidem Tartrate [Ambien] 10 mg PO HS 10/31/14 05/18/19 History amLODIPine BESYLATE [Norvasc] 10 mg PO DAILY 10/31/14 05/18/19 History metFORMIN HCL [Glucophage] 1,000 mg PO BID 10/31/14 05/18/19 History Bisoprolol-Hctz 5-6.25 mg [Ziac 1 tab PO DAILY 03/25/15 05/18/19 History 5-6.25 MG] Cholecalciferol [Vitamin D3 (25 1,000 unit PO DAILY 05/18/19 05/18/19 History Mcg = 1000 Iu)] Losartan Potassium 100 mg PO DAILY 05/18/19 05/18/19 History Potassium Chloride ER [K-Dur 20] 20 meq PO DAILY 05/18/19 05/18/19 History Tamsulosin [Flomax] 0.4 mg PO HS 05/18/19 05/18/19 History Allergies Allergy/AdvReac Type Severity Reaction Status Date / Time venom-wasp [wasp venom] Allergy Swelling Verified 05/18/19 21:13 Physical Exam Vitals: Vital Signs Temp Pulse Pulse Resp BP BP Pulse Ox 05/19/19 12:16 97.7 F 69 16 187/82 96 05/19/19 10:16 97.6 F 60 16 177/86 97 05/19/19 08:16 97.5 F L 54 L 16 182/84 95 05/19/19 08:00 97.5 F L 61 16 173/98 96 05/19/19 04:00 98.3 F 58 L 18 169/94 94 L 05/19/19 00:00 98.5 F 66 18 176/89 93 L 05/18/19 23:38 98 F 59 L 18 185/75 96 05/18/19 23:31 98.2 F 18 176/89 93 L 05/18/19 21:01 69 18 157/72 95 05/18/19 20:49 72 18 149/77 96 05/18/19 20:35 98.2 F 72 16 184/83 100 Intake and Output 05/18/19 05/19/19 05/19/19 22:59 06:59 14:59 Intake Total 60 Balance 60 Intake: Oral 60 Other: Voiding Method Toilet # Voids 1 Weight 102.5 kg 102.5 kg - Constitutional General appearance: obese - EENT Eyes: anicteric sclerae, EOMI, PERRLA, no ptosis, no scleral icterus, normal appearance ENT: hearing grossly normal, NA/AT, normal oropharynx, no thrush Ears: bilateral: normal - Neck Neck: no lymphadenopathy, normal ROM, no rigidity, no stridor, no thyromegaly Carotids: left: upstroke delayed Thyroid: bilateral: normal size - Respiratory Respiratory: bilateral: diminished, negative: dullness, rales, rhonchi, wheezing , prolonged expiration, prolonged inspiration - Cardiovascular Rhythm: regular Heart sounds: normal: S1, S2 Abnormal Heart Sounds: systolic murmur, no S3 Gallop, no S4 Gallop, no click - Gastrointestinal General gastrointestinal: normal bowel sounds, soft, no splenomegaly, no tenderness, no umbilical hernia, no ventral hernia - Integumentary Integumentary: normal, normal turgor - Neurologic Neurologic: CNII-XII intact - Musculoskeletal Musculoskeletal: gait normal, strength equal bilaterally - Psychiatric Psychiatric: A&O x's 3, appropriate affect, intact judgment & insight Results CBC & Chem 7: 05/18/19 20:57 05/18/19 20:57 Labs: Abnormal Lab Results - Last 24 Hours (Table) 05/18/19 05/18/19 05/18/19 Range/Units 20:57 20:57 21:04 RDW 16.5 H (11.5-15.5) % Neutrophils # 8.1 H (1.3-7.7) k/uL BUN 23 H (9-20) mg/dL Glucose 294 H (74-99) mg/dL POC Glucose (mg/dL) 320 H (75-99) mg/dL Triglycerides (<150) mg/dL Cholesterol (<200) mg/dL LDL Cholesterol, Calc (0-99) mg/dL HDL Cholesterol (40-60) mg/dL Urine Protein (Negative) Urine Glucose (UA) (Negative) Urine Blood (Negative) Ur Leukocyte Esterase (Negative) Urine RBC (0-5) /hpf Urine WBC (0-5) /hpf Urine Bacteria (None) /hpf Hyaline Casts (0-2) /lpf Urine Mucus (None) /hpf 05/18/19 05/19/19 05/19/19 Range/Units 22:00 02:55 06:19 RDW (11.5-15.5) % Neutrophils # (1.3-7.7) k/uL BUN (9-20) mg/dL Glucose (74-99) mg/dL POC Glucose (mg/dL) 182 H (75-99) mg/dL Triglycerides 275 H (<150) mg/dL Cholesterol 216 H (<200) mg/dL LDL Cholesterol, Calc 122 H (0-99) mg/dL HDL Cholesterol 39 L (40-60) mg/dL Urine Protein 1+ H (Negative) Urine Glucose (UA) 4+ H (Negative) Urine Blood Moderate H (Negative) Ur Leukocyte Esterase Small H (Negative) Urine RBC 6 H (0-5) /hpf Urine WBC 20 H (0-5) /hpf Urine Bacteria Rare H (None) /hpf Hyaline Casts 4 H (0-2) /lpf Urine Mucus Rare H (None) /hpf 05/19/19 05/19/19 Range/Units 07:49 12:08 RDW (11.5-15.5) % Neutrophils # (1.3-7.7) k/uL BUN (9-20) mg/dL Glucose (74-99) mg/dL POC Glucose (mg/dL) 184 H 185 H (75-99) mg/dL Triglycerides (<150) mg/dL Cholesterol (<200) mg/dL LDL Cholesterol, Calc (0-99) mg/dL HDL Cholesterol (40-60) mg/dL Urine Protein (Negative) Urine Glucose (UA) (Negative) Urine Blood (Negative) Ur Leukocyte Esterase (Negative) Urine RBC (0-5) /hpf Urine WBC (0-5) /hpf Urine Bacteria (None) /hpf Hyaline Casts (0-2) /lpf Urine Mucus (None) /hpf Thrombosis Risk Factor Assmnt - DVT/VTE Prophylaxis DVT/VTE Prophylaxis: Pharmacologic Prophylaxis ordered, Mechanical Prophylaxis ordered - Choose All That Apply Other Risk Factors: Yes Each Risk Factor Represents 2 Points: Age 61-74 years Thrombosis Risk Factor Assessment Total Risk Factor Score: 2 Thrombosis Risk Factor Assessment Level: Low Risk Assessment and Plan Assessment: Assessment and plan: 1. TIA /possible CVA in the distribution of left middle cerebral artery. Continue neuro check every 2 hours for the next 24 hours, continue aspirin 325 mg once every day, Plavix 75 mg once every day, Lipitor 80 mg once every day, tight control of diabetes as well as blood pressure control vascular surgery evaluation for left carotid stenosis. Patient could not go for MRI due to steel suture in his right eye, cannot 100% the positive for an acute stroke, consider TRINA after a transthoracic echocardiogram. 2. 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 Continue Lipitor 80 mg once every day aspirin and Plavix for secondary stroke prevention, vascular surgery for follow-up. 3. History of CVA in the past. Continue treatment as in paragraph #1. 4. Hypertension and hypertensive cardiovascular disease. Continue patient on Ziac 5/6.25 mg orally once every day, losartan 100 mg orally once every day, amlodipine 10 mg orally once every day. 5. Hyperlipidemia. Continue patient on Lipitor 80 mg orally once every day. 6. Enlarged prostate. Continue Flomax 0.4 mg orally once every day. 7. Obesity with obstructive sleep apnea. Currently on CPAP, continue weight loss. 8. Diabetes mellitus type 2. Continue metformin 500 mg orally twice every day after 48 hours from CTA. Continue sliding scale insulin for now. 9. 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 10. DVT prophylaxis. Bilateral knee-high BIN hose as well as heparin 5000 units subcutaneously every 8 hours. 12. GI prophylaxis. Continue PPI. 13. Admit to inpatient. Estimate a length of stay 2 midnights. 14. Patient is full code.
--- NOTE | 2019-05-19 16:44 | P.GSCN ---
History of Present Illness Consult date: 05/19/19 Reason for Consult: Carotid stenosis. Requesting physician: Marlon Sawyer History of present illness: Patient is a 74-year-old male who presented to the to the hospital complaining of right arm and leg numbness/weakness. He has had similar events in the past and all have lasted for a relatively short period of time. During his hospital stay he had another similar episode for which a code stroke was called. Com puted tomography scan of the brain demonstrated no evidence of intracranial bleed or infarct changes of the brain. CTA suggested left ICA stenosis greater than 70% with severe tortuosity also being noted. Social history is unremarkable for tobacco use. Patient denies any history of coronary artery disease. I taken the liberty of ordering a carotid duplex. If no significant disease is noted at the cervical level then catheter directed angiography would be most beneficial to evaluate the more distal portion of the ICA. I agree with aspirin and statin therapy. A shunt may also benefit from the use of anticoagulants. Thank you very much for allowing me to participate in the care of your patient. I'll follow this patient along with you during his hospital stay. 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 History of Any Multi-Drug Resistant Organisms: None Reported Past Surgical History: Back Surgery, Bladder Surgery, Hernia Repair, Orthopedic Surgery Additional Past Surgical History / Comment(s): eye surgery -left eye- metal sutures, 2013 excised lt eye lid lesion with rhomboid advancement flap closure, rt inguinal hernia repair, colonoscopy, lamenectomy, skin cancer removals. Past Anesthesia/Blood Transfusion Reactions: No Reported Reaction Past Psychological History: No Psychological Hx Reported Additional Psychological History / Comment(s): pt is retired,lives at home with his , is independant. Smoking Status: Never smoker Past Alcohol Use History: Occasional Additional Past Alcohol Use History / Comment(s): Pt states he drinks beer or rum/coke but less than 14 a week. Past Drug Use History: None Reported - Past Family History Sister(s) Family Medical History: No Reported History (Patient has 2 sisters no major medical problems.) Son(s) Family Medical History: No Reported History (Patient has 2 sons no major medical problems.) Father Family Medical History: Myocardial Infarction ([place]) (Father at age of 59 from [place].) Additional Family Medical History / Comment(s): age 59 from [place] Mother Family Medical History: Coronary Artery Disease (CAD) (Mother at age of 83 from CAD and congestive heart failure and she was diabetic.), Diabetes Mellitus Additional Family Medical History / Comment(s): cabg Medications and Allergies Home Medications Medication Instructions Recorded Confirmed Type Zolpidem Tartrate [Ambien] 10 mg PO HS 10/31/14 05/18/19 History amLODIPine BESYLATE [Norvasc] 10 mg PO DAILY 10/31/14 05/18/19 History metFORMIN HCL [Glucophage] 1,000 mg PO BID 10/31/14 05/18/19 History Bisoprolol-Hctz 5-6.25 mg [Ziac 1 tab PO DAILY 03/25/15 05/18/19 History 5-6.25 MG] Cholecalciferol [Vitamin D3 (25 1,000 unit PO DAILY 05/18/19 05/18/19 History Mcg = 1000 Iu)] Losartan Potassium 100 mg PO DAILY 05/18/19 05/18/19 History Potassium Chloride ER [K-Dur 20] 20 meq PO DAILY 05/18/19 05/18/19 History Tamsulosin [Flomax] 0.4 mg PO HS 05/18/19 05/18/19 History Allergies Allergy/AdvReac Type Severity Reaction Status Date / Time venom-wasp [wasp venom] Allergy Swelling Verified 05/18/19 21:13 Surgical - Exam Osteopathic Statement: *. No significant issues noted on an osteopathic structural exam other than those noted in the History and Physical/Consult. Vital Signs Temp Pulse Resp BP Pulse Ox 98.2 F 72 16 184/83 100 05/18/19 20:35 05/18/19 20:35 05/18/19 20:35 05/18/19 20:35 05/18/19 20:35 Results - Labs 05/18/19 20:57 05/18/19 20:57 Abnormal Lab Results - Last 24 Hours (Table) 05/18/19 05/18/19 05/18/19 Range/Units 20:57 20:57 21:04 RDW 16.5 H (11.5-15.5) % Neutrophils # 8.1 H (1.3-7.7) k/uL BUN 23 H (9-20) mg/dL Glucose 294 H (74-99) mg/dL POC Glucose (mg/dL) 320 H (75-99) mg/dL Triglycerides (<150) mg/dL Cholesterol (<200) mg/dL LDL Cholesterol, Calc (0-99) mg/dL HDL Cholesterol (40-60) mg/dL Urine Protein (Negative) Urine Glucose (UA) (Negative) Urine Blood (Negative) Ur Leukocyte Esterase (Negative) Urine RBC (0-5) /hpf Urine WBC (0-5) /hpf Urine Bacteria (None) /hpf Hyaline Casts (0-2) /lpf Urine Mucus (None) /hpf 05/18/19 05/19/19 05/19/19 Range/Units 22:00 02:55 06:19 RDW (11.5-15.5) % Neutrophils # (1.3-7.7) k/uL BUN (9-20) mg/dL Glucose (74-99) mg/dL POC Glucose (mg/dL) 182 H (75-99) mg/dL Triglycerides 275 H (<150) mg/dL Cholesterol 216 H (<200) mg/dL LDL Cholesterol, Calc 122 H (0-99) mg/dL HDL Cholesterol 39 L (40-60) mg/dL Urine Protein 1+ H (Negative) Urine Glucose (UA) 4+ H (Negative) Urine Blood Moderate H (Negative) Ur Leukocyte Esterase Small H (Negative) Urine RBC 6 H (0-5) /hpf Urine WBC 20 H (0-5) /hpf Urine Bacteria Rare H (None) /hpf Hyaline Casts 4 H (0-2) /lpf Urine Mucus Rare H (None) /hpf 05/19/19 05/19/19 Range/Units 07:49 12:08 RDW (11.5-15.5) % Neutrophils # (1.3-7.7) k/uL BUN (9-20) mg/dL Glucose (74-99) mg/dL POC Glucose (mg/dL) 184 H 185 H (75-99) mg/dL Triglycerides (<150) mg/dL Cholesterol (<200) mg/dL LDL Cholesterol, Calc (0-99) mg/dL HDL Cholesterol (40-60) mg/dL Urine Protein (Negative) Urine Glucose (UA) (Negative) Urine Blood (Negative) Ur Leukocyte Esterase (Negative) Urine RBC (0-5) /hpf Urine WBC (0-5) /hpf Urine Bacteria (None) /hpf Hyaline Casts (0-2) /lpf Urine Mucus (None) /hpf Diabetes panel 05/18/19 05/19/19 Range/Units 20:57 02:55 Sodium 138 (137-145) mmol/L Potassium 3.6 (3.5-5.1) mmol/L Chloride 101 (98-107) mmol/L Carbon Dioxide 24 (22-30) mmol/L BUN 23 H (9-20) mg/dL Creatinine 1.16 (0.66-1.25) mg/dL Glucose 294 H (74-99) mg/dL Calcium 9.5 (8.4-10.2) mg/dL AST 26 (17-59) U/L ALT 35 (21-72) U/L Alkaline Phosphatase 80 (38-126) U/L Total Protein 6.9 (6.3-8.2) g/dL Albumin 4.4 (3.5-5.0) g/dL Triglycerides 275 H (<150) mg/dL HDL Cholesterol 39 L (40-60) mg/dL Calcium panel 05/18/19 Range/Units 20:57 Calcium 9.5 (8.4-10.2) mg/dL Albumin 4.4 (3.5-5.0) g/dL Pituitary panel 05/18/19 Range/Units 20:57 Sodium 138 (137-145) mmol/L Potassium 3.6 (3.5-5.1) mmol/L Chloride 101 (98-107) mmol/L Carbon Dioxide 24 (22-30) mmol/L BUN 23 H (9-20) mg/dL Creatinine 1.16 (0.66-1.25) mg/dL Glucose 294 H (74-99) mg/dL Calcium 9.5 (8.4-10.2) mg/dL Adrenal panel 05/18/19 Range/Units 20:57 Sodium 138 (137-145) mmol/L Potassium 3.6 (3.5-5.1) mmol/L Chloride 101 (98-107) mmol/L Carbon Dioxide 24 (22-30) mmol/L BUN 23 H (9-20) mg/dL Creatinine 1.16 (0.66-1.25) mg/dL Glucose 294 H (74-99) mg/dL Calcium 9.5 (8.4-10.2) mg/dL Total Bilirubin 0.5 (0.2-1.3) mg/dL AST 26 (17-59) U/L ALT 35 (21-72) U/L Alkaline Phosphatase 80 (38-126) U/L Total Protein 6.9 (6.3-8.2) g/dL Albumin 4.4 (3.5-5.0) g/dL - Imaging CT scan - abdomen: report reviewed, image reviewed Additional studies: CTA review demonstrates no significant carotid bulb stenosis. The carotid bulb is at the C3-C4 level. The patient does have extreme tortuosity in a loop at the C1-C2 level. On axial images I do not see any significant stenosis and I believe the stenosis identified may be artifactual.
[2019-05-19] MEDS: HEPARIN SODIUM,PORCINE 5,000 UNIT/ML 1 ML VIAL SQ SCH ×2 (16:52→23:12)
[2019-05-19 17:18] LABS: Glucose,Whole Blood 180 mg/dL (75-99)
--- NOTE | 2019-05-19 17:30 | US ---
EXAMINATION TYPE: US carotid duplex BILAT DATE OF EXAM: 05/19/2019 COMPARISON: NONE CLINICAL HISTORY: carotid stenosis. TIA EXAM MEASUREMENTS: RIGHT: Peak Systolic Velocity (PSV) cm/sec ----- Right CCA: 73.5 ----- Right ICA: 66.9 ----- Right ECA: 129.1 ICA/CCA ratio: 0.9 RIGHT: End Diastole cm/sec ----- Right CCA: 13.1 ----- Right ICA: 16.4 ----- Right ECA: 0.0 LEFT: Peak Systolic Velocity (PSV) cm/sec ----- Left CCA: 91.1 ----- Left ICA: 71.3 ----- Left ECA: 88.5 ICA/CCA ratio: 0.8 LEFT: End Diastole cm/sec ----- Left CCA: 15.7 ----- Left ICA: 13.1 ----- Left ECA: 0.0 VERTEBRALS (direction of flow): Right Vertebral: Antegrade Left Vertebral: Antegrade Rhythm: Normal Mild plaque bilateral bifurcations. Tortuous left ICA. No evidence of significant stenosis IMPRESSION: There is antegrade flow in the vertebral arteries. Bilateral plaque formation. Images and measurements suggest close to 50% stenosis in both internal carotid arteries. There is 50- 70% stenosis in the right external carotid artery. Criteria for Assigning % of Stenosis / Diameter reduction (Estimation based on the indirect measurements of the internal carotid artery velocities (ICA PSV). 1. Normal (no stenosis)=ICA PSV < 125 cm/s: ratio < 2.0: ICA EDV<40 cm/s. 2. Less than 50% stenosis=ICA PSV < 125 cm/s: ratio < 2.0: ICA EDV<40 cm/s. 3. 50 to 69% stenosis=ICA PSV of 125 to 230 cm/s: ration 2.0 ? 4.0: ICA EDV 40-100 cm/s. 4. Greater than 70% stenosis to near occlusion= ICA PSV > 230 cm/s: ratio > 4.0: ICA EDV > 100 cm/s. 5. Near occlusion= ICA PSV velocities may be low or undetectable: variable ratio and ICA EDV. 6. Total occlusion=unable to detect flow.
--- NOTE | 2019-05-19 18:00 | ECHOF ---
Referral Reason:TIA MEASUREMENTS -------- HEIGHT: 170.2 cm WEIGHT: 102.1 kg BP: 177/86 RVIDd: 3.3 cm (< 3.3) IVSd: 1.6 cm (0.6 - 1.1) LVIDd: 5.4 cm (3.9 - 5.3) LVPWd: 1.4 cm (0.6 - 1.1) IVSs: 1.6 cm LVIDs: 3.3 cm LVPWs: 2.3 cm LAESV Index (A-L): 35.35 ml/m Ao Diam: 2.8 cm (2.0 - 3.7) AV Cusp: 2.1 cm (1.5 - 2.6) LA Diam: 4.3 cm (2.7 - 3.8) EPSS: 0.8 cm MV E Chip: 0.83 m/s MV DecT: 199 ms MV A Chip: 0.61 m/s MV E/A Ratio: 1.35 AR PHT: 510 ms RAP: 5.00 mmHg RVSP: 20.59 mmHg MV EF SLOPE: 91.98 mm/s (70 - 150) MV EXCURSION: 1.62 cm (> 18.000) FINDINGS -------- Sinus rhythm. This was a technically adequate study. The left ventricular size is normal. There is moderate concentric left ventricular hypertrophy. O verall left ventricular systolic function is normal with, an EF between 55 - 60 %. Pseudonormal LV filling pattern, consistent with elevated LA pressure. The right ventricle is normal in size. Left atrium is moderately dilated by volume. The right atrium was not well visualized. Lumason used Interatrial and interventricular septum intact. The aortic valve is trileaflet, and appears structurally normal. No aortic stenosis or regurgitation. Mild mitral annular calcification present. Mild mitral regurgitation is present. Mild tricuspid regurgitation present. There is no evidence of pulmonary hypertension. The right v entricular systolic pressure, as measured by Doppler, is 20.59mmHg. Trace/mild (physiologic) pulmonic regurgitation. The aortic root size is normal. The inferior vena cava was not well visualized. There is no pericardial effusion. CONCLUSIONS -------- 1. Sinus rhythm. 2. The left ventricular size is normal. 3. There is moderate concentric left ventricular hypertrophy. 4. Overall left ventricular systolic function is normal with, an EF between 55 - 60 %. 5. Pseudonormal LV filling pattern, consistent with elevate LA pressure. 6. Left atrium is moderately dilated by volume. 7. Lumason used 8. Interatrial and interventricular septum intact. 9. The aortic valve is trileaflet, and appears structurally normal. No aortic stenosis or regurgitati on. 10. Mild mitral annular calcification present. 11. Mild mitral regurgitation is present. 12. Mild tricuspid regurgitation present. 13. There is no evidence of pulmonary hypertension. 14. Trace/mild (physiologic) pulmonic regurgitation. 15. The aortic root size is normal. 16. The inferior vena cava was not well visualized. 17. There is no pericardial effusion. RECEPTION AGENT: Celeste Duncan RDCS
[2019-05-19 20:55] LABS: Glucose,Whole Blood 177 mg/dL (75-99)
[2019-05-19] MEDS ORDERED: TAMSULOSIN 0.4 MG CAP.ER.24H PO SCH (21:00)
[2019-05-19] MEDS ORDERED: ZOLPIDEM 10 MG TAB PO SCH (21:00)
[2019-05-19] MEDS ORDERED: ASPIRIN 325 MG TAB PO SCH (23:16)
[2019-05-20 06:07] VITALS: RESP 16
[2019-05-20 06:17] LABS: Glucose,Whole Blood 190 mg/dL (75-99)
[2019-05-20] MEDS: SODIUM CHLORIDE 0.9% 1,000 ML IV SCH ×2 (06:26→10:24)
[2019-05-20] MEDS: INSULIN ASPART (NovoLOG) 100 UNIT/ML VIAL SQ SCH ×2 (06:26→12:08)
[2019-05-20 06:39] LABS: Basophils # (A) 0.1 k/uL (0-0.2); Basophils % (A) 1 %; Eosinophils # (A) 0.1 k/uL (0-0.7); Eosinophils % (A) 1 %; HCT 44.6 % (39.0-53.0); HGB 15.2 gm/dL (13.0-17.5); Lymphocytes # (A) 1.9 k/uL (1.0-4.8); Lymphocytes % (A) 21 %; MCH 31.6 pg (25.0-35.0); MCHC 34.1 g/dL (31.0-37.0); MCV 92.7 fL (80.0-100.0); Mean Platelet Volume 7.4; Monocytes # (A) 0.6 k/uL (0-1.0); Monocytes % (A) 6 %; Neutrophils # (A) 6.1 k/uL (1.3-7.7); Neutrophils % (A) 68 %; Platelet Count 277 k/uL (150-450); RBC 4.81 m/uL (4.30-5.90); RDW 13.7 % (11.5-15.5); WBC 8.9 k/uL (3.8-10.6)
[2019-05-20 06:54] LABS: Albumin 4.4 g/dL (3.5-5.0); Calcium 9.1 mg/dL (8.4-10.2); Potassium 3.5 mmol/L (3.5-5.1); Total Bilirubin 0.9 mg/dL (0.2-1.3); Total Protein 7.1 g/dL (6.3-8.2)
[2019-05-20 07:59] VITALS: TEMP 98
[2019-05-20] MEDS: amLODIPine 10 MG TAB PO SCH (08:52)
[2019-05-20] MEDS: DOCUSATE 100 MG CAP PO SCH ×2 (08:52→10:25)
[2019-05-20] MEDS: metFORMIN 500 MG TAB PO SCH (08:53)
[2019-05-20] MEDS: LOSARTAN 50 MG TAB PO SCH (08:53)
[2019-05-20] MEDS: BISOPROLOL-HCTZ 5-6.25 MG 1 EACH TAB PO SCH (08:53)
[2019-05-20] MEDS ORDERED: CLOPIDOGREL 75 MG TAB PO SCH (09:00)
[2019-05-20] MEDS: CHOLECALCIFEROL 1,000 UNIT TAB PO SCH (09:20)
[2019-05-20] MEDS: POTASSIUM CHLORIDE ER 20 MEQ TAB.ER PO SCH (09:20)
[2019-05-20] MEDS: FAMOTIDINE 20 MG TAB PO SCH (09:20)
[2019-05-20] MEDS: ASPIRIN 325 MG TAB PO SCH (09:20)
[2019-05-20] MEDS: HEPARIN SODIUM,PORCINE 5,000 UNIT/ML 1 ML VIAL SQ SCH (09:20)
[2019-05-20] MEDS: ATORVASTATIN 80 MG TAB PO SCH (09:20)
[2019-05-20 12:00] LABS: Glucose,Whole Blood 220 mg/dL (75-99)
[2019-05-20 12:10] VITALS: BP 178/84; PULSE 60
--- NOTE | 2019-05-20 16:00 | P.DS ---
Providers Date of admission: 05/18/19 23:17 Attending physician: Vel Sawyer Consults: 05/18/19 23:15 Consult Physician Routine Consulting Provider: Ermelinda Green Consult Reason/Comments: TIA Do you want consulting provider notified?: Yes 05/19/19 12:28 Consult Physician Routine Consulting Provider: Antwan Lee Consult Reason/Comments: carotid stenosis 70%, TIA Do you want consulting provider notified?: Yes Primary care physician: Aki Pelaez [facility] Course: This is a 74-year-old male one of Dr. Pelaez with a previous medical history significant for hypertension and hypertensive cardio vascular disease, hyperlipidemia, history of diabetes mellitus type 2, enlarged prostate, insomnia, obesity, patient presented to the emergency department at [facility] today with increased right facial numbness as well as right arm and right leg numbness, patient stated that this is started about a month ago when he was [place] in [place] when he developed to have a significant numbness to the angle of the mouth and right side this is lasts for a few seconds and disappeared after that however a week ago developed to have an increased numbness as well as increased numbness in the right arm or right leg yesterday got worse and asked his to drive him to the ER for evaluation he was seen in the emergency department and underwent computed tomography scan of the brain did not show any evidence of acute abnormalities, it did show an old left occipital infarct and a chronic white matter changes, however because of the presentation he was admitted to the hospital for evaluation of TIA/CVA, neuro check was obtained neurology consultation was obtained along with echocardiogram. 05/19 in the morning while the patient on the floor he developed to have a sig nificant numbness on the right side of the body a code stroke was called and the patient underwent CT scan of the brain that was negative for acute infarct or bleed CT angiography showed greatr than 70% stenosis of the left carotid artery he was seen in consultation by neurology was placed on aspirin and Plavix and he was recommended to see a vascular surgeon with risk factor modification he was started on statin in the form of Lipitor 80 mg orally once every day. 05/20 patient is doing better without any residual deficits, patient was able to ambulate 3 times in the hallway today without any balance issues, no dysphagia no disorientation no lightheadedness or dizziness, patient does not have any speech rest or right upper severe lower extremity weakness, imaging studies were discussed with the patient, with repeat carotid Doppler study shows no critical ICA stenosis images and carotid Dopplers, was 50% stenosis in both ICA, 70% stenosis in the right external carotid artery, and was seen by Dr. Rodriguez with outpatient follow-up, discharge condition: Stable and improved, monitor blood pressures an outpatient, neurology to see Dr. Khalil, PCP to see in one week, Dr. Olson to see in 3 weeks FINAL DIAGNOSIS 1. TIA /possible CVA in the distribution of left middle cerebral artery. Completed neuro check every 2 hours for the next 24 hours, continue aspirin 325 mg once every day, Plavix 75 mg once every day, Lipitor 80 mg once every day new prescription, tight control of diabetes as well as blood pressure control seen by vascular surgery evaluation for left carotid stenosis with false images based on CTA. Patient could not go for MRI due to steel suture in his right eye, cannot 100% the positive for an acute stroke, consider TRINA after a transthoracic echocardiogram. 2. Mild stenosis of the left external carotid artery less than 50%, bilateral ICA based on carotid ultrasound, false-positive CTA soft tissue neck when reviewed by vascular. Continue Lipitor 80 mg once every day aspirin and Plavix for secondary stroke prevention, vascular surgery for follow-up as outpatient. 3. History of CVA in the past. Continue treatment as in paragraph #1. Compliance to statins, Lipitor started during this admission at 80 mg daily, LDL of 120, add co-Q10 for tolerance to statins, if not tolerated, patient can be a candidate for PCSK9 inhibitors like Repatha or praluent 4. Hypertension and hypertensive cardiovascular disease. Continue patient on Ziac 5/6.25 mg orally once every day, losartan 100 mg orally once every day, amlodipine 10 mg orally once every day. 5. Hyperlipidemia. Start patient on Lipitor 80 mg orally once every day. To be maintained post discharge with compliance to diet and medication 6. Enlarged prostate. Continue Flomax 0.4 mg orally once every day. 7. Obesity with obstructive sleep apnea. Currently on CPAP, continue weight loss. 8. Diabetes mellitus type 2. Continue metformin 500 mg orally twice every day after 48 hours from CTA. Continue sliding scale insulin for now. 9. 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 10. DVT prophylaxis. Bilateral knee-high BIN hose as well as heparin 5000 units subcutaneously every 8 hours. 12. GI prophylaxis. Continue PPI. 13. Admit to inpatient. Estimate a length of stay 2 midnights. 14. Patient is full code. Discharge Medication List Zolpidem Tartrate [Ambien] 10 mg PO HS 10/31/14 [History] amLODIPine BESYLATE [Norvasc] 10 mg PO DAILY 10/31/14 [History] metFORMIN HCL [Glucophage] 1,000 mg PO BID 10/31/14 [History] Bisoprolol-Hctz 5-6.25 mg [Ziac 5-6.25 MG] 1 tab PO DAILY 03/25/15 [History] Cholecalciferol [Vitamin D3 (25 Mcg = 1000 Iu)] 1,000 unit PO DAILY 05/18/19 [History] Losartan Potassium 100 mg PO DAILY 05/18/19 [History] Potassium Chloride ER [K-Dur 20] 20 meq PO DAILY 05/18/19 [History] Tamsulosin [Flomax] 0.4 mg PO HS 05/18/19 [History] Aspirin 325 mg PO DAILY #100 tab 05/20/19 [Rx] Atorvastatin [Lipitor] 80 mg PO DAILY #30 tab 05/20/19 [Rx] Clopidogrel [Plavix] 75 mg PO DAILY #30 tab 05/20/19 [Rx] Patient Condition at Discharge: Fair Plan - Discharge Summary Discharge Rx Participant: No New Discharge Prescriptions: New Aspirin 325 mg PO DAILY #100 tab Atorvastatin [Lipitor] 80 mg PO DAILY #30 tab Clopidogrel [Plavix] 75 mg PO DAILY #30 tab Continue metFORMIN HCL [Glucophage] 1,000 mg PO BID amLODIPine BESYLATE [Norvasc] 10 mg PO DAILY Zolpidem Tartrate [Ambien] 10 mg PO HS Bisoprolol-Hctz 5-6.25 mg [Ziac 5-6.25 MG] 1 tab PO DAILY Tamsulosin [Flomax] 0.4 mg PO HS Potassium Chloride ER [K-Dur 20] 20 meq PO DAILY Losartan Potassium 100 mg PO DAILY Cholecalciferol [Vitamin D3 (25 Mcg = 1000 Iu)] 1,000 unit PO DAILY Discharge Medication List Zolpidem Tartrate [Ambien] 10 mg PO HS 10/31/14 [History] amLODIPine BESYLATE [Norvasc] 10 mg PO DAILY 10/31/14 [History] metFORMIN HCL [Glucophage] 1,000 mg PO BID 10/31/14 [History] Bisoprolol-Hctz 5-6.25 mg [Ziac 5-6.25 MG] 1 tab PO DAILY 03/25/15 [History] Cholecalciferol [Vitamin D3 (25 Mcg = 1000 Iu)] 1,000 unit PO DAILY 05/18/19 [History] Losartan Potassium 100 mg PO DAILY 05/18/19 [History] Potassium Chloride ER [K-Dur 20] 20 meq PO DAILY 05/18/19 [History] Tamsulosin [Flomax] 0.4 mg PO HS 05/18/19 [History] Aspirin 325 mg PO DAILY #100 tab 05/20/19 [Rx] Atorvastatin [Lipitor] 80 mg PO DAILY #30 tab 05/20/19 [Rx] Clopidogrel [Plavix] 75 mg PO DAILY #30 tab 05/20/19 [Rx] Follow up Appointment(s)/Referral(s): Israel Rodriguez DO [Doctor of Osteopathic Medicine] - 3 Weeks Aki Pelaez DO [Primary Care Provider] - 1-2 days Cornelio Khalil DO [STAFF PHYSICIAN] - 1 Week Patient Instructions/Handouts: Transient Ischemic Attack (DC) Discharge Disposition: HOME SELF-CARE
== END 2019-05-20 14:26 | disposition home or self-care (01) ==
LOC: EC 20:32 → 3SCARD 23:17
PROVIDERS: ADMIT Internal Medicine; ATTEND Internal Medicine
DX: G45.9 Transient cerebral ischemic attack, unspecified (principal); E11.65 Type 2 diabetes mellitus with hyperglycemia; I65.22 Occlusion and stenosis of left carotid artery; I11.9 Hypertensive heart disease without heart failure; E78.5 Hyperlipidemia, unspecified; N40.0 Benign prostatic hyperplasia without lower urinary tract symptoms; E66.9 Obesity, unspecified; Z68.35 Body mass index [BMI] 35.0-35.9, adult; H54.61 Unqualified visual loss, right eye, normal vision left eye; G47.33 Obstructive sleep apnea (adult) (pediatric); I67.82 Cerebral ischemia; I69.322 Dysarthria following cerebral infarction; Z99.89 Dependence on other enabling machines and devices; Z79.4 Long term (current) use of insulin; Z79.899 Other long term (current) drug therapy; Z91.038 Other insect allergy status; Z85.828 Personal history of other malignant neoplasm of skin; Z82.49 Family history of ischemic heart disease and other diseases of the circulatory system; Z83.3 Family history of diabetes mellitus
CPT/HCPCS: 96360; 96361; 96372 ×2; 99285; 36415; 93005; 97161; 97165; 92523; 80061; 80053 ×2; 84484 ×2; 85025 ×2; 85610; 85730; 81001; 71046; 93880; 70496; 70450 ×2; 70498; G0378 ×3; C8929; J1644 ×2; Q9950; Q9967; 93306

== ENCOUNTER 2020-05-28 03:40 | Inpatient (IN) | payer MEDICARE ==
[2020-05-28] MEDS ORDERED: SODIUM CHLORIDE 0.9% 1,000 ML IV STA (04:05)
[2020-05-28] MEDS ORDERED: ONDANSETRON 4 MG/2 ML VIAL IVP STA (04:05)
--- NOTE | 2020-05-28 04:38 | ED ---
General Adult HPI - General Chief complaint: Abdominal Pain Stated complaint: Shortness of breath Time Seen by Provider: 05/28/20 03:54 Source: patient Mode of arrival: ambulatory Limitations: no limitations - History of Present Illness Initial comments: Marlon a 75-year-old male who presents to the emergency department today with vague complaints. Patient reports that he hadn't been feeling well for couple of days so he saw his primary care physician yesterday, he was noted to have a low oxygen level and to be in new onset A. fib, rate was controlled. Patient was prescribed bisystolic and's around to and referred to cardiology whom he is supposed to see tomorrow. Patient reports that he was in his usual state of health for the rest of the day, he states he laid down he felt like he had some bloating in his abdomen, he drink some tonic waterand reports that he then felt like his abdomen was moving as if he was . Patient does note that he has been feeling short of breath for a few days,he has not had any nausea or vomiting, he had a normal bowel movement yesterday. He has not had any fevers or chills. Denies any pain in his chest but reports he feels like there is tightness throughout his chest. - Related Data Home Medications Medication Instructions Recorded Confirmed Zolpidem Tartrate [Ambien] 10 mg PO HS 10/31/14 05/18/19 amLODIPine BESYLATE [Norvasc] 10 mg PO DAILY 10/31/14 05/18/19 metFORMIN HCL [Glucophage] 1,000 mg PO BID 10/31/14 05/18/19 Bisoprolol-Hctz 5-6.25 mg [Ziac 1 tab PO DAILY 03/25/15 05/18/19 5-6.25 MG] Cholecalciferol [Vitamin D3 (25 1,000 unit PO DAILY 05/18/19 05/18/19 Mcg = 1000 Iu)] Losartan Potassium 100 mg PO DAILY 05/18/19 05/18/19 Potassium Chloride ER [K-Dur 20] 20 meq PO DAILY 05/18/19 05/18/19 Tamsulosin [Flomax] 0.4 mg PO HS 05/18/19 05/18/19 Previous Rx's Medication Instructions Recorded Aspirin 325 mg PO DAILY #100 tab 05/20/19 Atorvastatin [Lipitor] 80 mg PO DAILY #30 tab 05/20/19 Clopidogrel [Plavix] 75 mg PO DAILY #30 tab 05/20/19 Allergies Allergy/AdvReac Type Severity Reaction Status Date / Time venom-wasp [wasp venom] Allergy Swelling Verified 05/28/20 03:53 Review of Systems ROS Statement: Those systems with pertinent positive or pertinent negative responses have been documented in the HPI. ROS Other: All systems not noted in ROS Statement are negative. 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 afib History of Any Multi-Drug Resistant Organisms: None Reported Past Surgical History: Back Surgery, Bladder Surgery, Hernia Repair, Orthopedic Surgery Additional Past Surgical History / Comment(s): eye surgery -left eye- metal sutures, 2013 excised lt eye lid lesion with rhomboid advancement flap closure, rt inguinal hernia repair, colonoscopy, lamenectomy, skin cancer removals. Past Anesthesia/Blood Transfusion Reactions: No Reported Reaction Past Psychological History: No Psychological Hx Reported Smoking Status: Never smoker Past Alcohol Use History: Occasional Past Drug Use History: None Reported - Past Family History Sister(s) Family Medical History: No Reported History (Patient has 2 sisters no major medical problems.) Son(s) Family Medical History: No Reported History (Patient has 2 sons no major medical problems.) Father Family Medical History: Myocardial Infarction ([place]) (Father at age of 59 from [place] Additional Family Medical History / Comment(s): age 59 from [place] Mother Family Medical History: Coronary Artery Disease (CAD) (Mother at age of 83 from CAD and congestive heart failure and she was diabetic.), Diabetes Mellitus Additional Family Medical History / Comment(s): cabg General Exam - General Exam Comments Initial Comments: Physical Exam GENERAL: obese male, appears somewhat ashen and hypoxic HENT: Normocephalic, Atraumatic. EYES: PERRL, EOMI PULMONARY: Unlabored respirations. No audible rales rhonchi or wheezing was noted. CARDIOVASCULAR: irregularly irregular ABDOMEN: Soft and nontender with normal bowel sounds. No pulsatile mass SKIN: Skin is clear with no lesions or rashes and otherwise unremarkable. : Deferred NEUROLOGIC: Patient is alert and oriented x3. Moving all extremities spontaneously MUSCULOSKELETAL: Normal extremities with adequate strength and full range of motion. No lower extremity swelling or edema. No calf tenderness. PSYCHIATRIC: Normal psychiatric evaluation. Limitations: no limitations Course Vital Signs 05/28/20 05/28/20 03:47 05:59 Temperature 99.1 F Pulse Rate 90 90 Respiratory 18 18 Rate Blood Pressure 152/75 142/92 O2 Sat by Pulse 96 94 L Oximetry EKG Findings - EKG Comments: EKG Findings:: EKG was obtained due to A. fib and complaining of tightness in the chest, EKG obtained at 4:20 AM, rate is 94 rhythm is narrow complex irregularly irregular consistent with atrial fibrillation, QRS 90, QTC [address] elevations, mild ST depressions laterally no evidence of acute infarction. Medical Decision Making - Medical Decision Making the patient was seen and evaluated history is obtained from the patient who has vague complaints of movement in his abdomen, no real pain no nausea or vomiting constipation no chest pain but does report palpitations, was diagnosed with a. fib yesterday, doesn't complain of any shortness of breath but is hypoxic to 87% while resting in bed A broad workup was initiated D-dimer is noted to be elevated and CT pulmonary embolism study was ordered resulted with evidence of heart failure Labs had by cytopenia, elevated transaminases, elevated lipase, Troponin is detectable but within normal limits Given the patient's multiple lab abnormalities, evidence of new acute heart failure, newly identified atrial fibrillation I do feel the patient benefit from admission to the hospital for evaluation by cardiology. This plan was discussed with Dr. Huynh who agrees with plan for admission requests there be further imaging of the patient's abdomen as well. - Lab Data Result diagrams: 05/28/20 04:37 05/28/20 04:37 Lab Results 05/28/20 05/28/20 05/28/20 Range/Units 04:37 04:37 04:37 WBC 2.2 L (3.8-10.6) k/uL RBC 2.76 L (4.30-5.90) m/uL Hgb 9.5 L (13.0-17.5) gm/dL Hct 28.3 L (39.0-53.0) % MCV 102.4 H (80.0-100.0) fL MCH 34.5 (25.0-35.0) pg MCHC 33.7 (31.0-37.0) g/dL RDW 14.7 (11.5-15.5) % Plt Count 227 (150-450) k/uL Neutrophils % (Manual) 52 % Lymphocytes % (Manual) 41 % Monocytes % (Manual) 5 % Eosinophils % (Manual) 2 % Neutrophils # (Manual) 1.14 L (1.3-7.7) k/uL Lymphocytes # (Manual) 0.90 L (1.0-4.8) k/uL Monocytes # (Manual) 0.11 (0-1.0) k/uL Eosinophils # (Manual) 0.04 (0-0.7) k/uL Nucleated RBCs 0 (0-0) /100 WBC Manual Slide Review Performed Reactive Lymphocytes Present Macrocytosis Slight PT 10.8 (9.0-12.0) sec INR 1.1 (<1.2) APTT 31.8 H (22.0-30.0) sec D-Dimer 1.27 H (<0.60) mg/L FEU Sodium 135 L (137-145) mmol/L Potassium 3.2 L (3.5-5.1) mmol/L Chloride 100 (98-107) mmol/L Carbon Dioxide 27 (22-30) mmol/L Anion Gap 8 mmol/L BUN 19 (9-20) mg/dL Creatinine 1.17 (0.66-1.25) mg/dL Est GFR (CKD-EPI)AfAm 70 (>60 ml/min/1.73 sqM) Est GFR (CKD-EPI)NonAf 61 (>60 ml/min/1.73 sqM) Glucose 222 H (74-99) mg/dL Calcium 8.3 L (8.4-10.2) mg/dL Total Bilirubin 1.0 (0.2-1.3) mg/dL AST 112 H (17-59) U/L ALT 132 H (4-49) U/L Alkaline Phosphatase 84 (38-126) U/L Troponin I (0.000-0.034) ng/mL NT-Pro-B Natriuret Pep pg/mL Total Protein 5.7 L (6.3-8.2) g/dL Albumin 3.3 L (3.5-5.0) g/dL Lipase 485 H (23-300) U/L TSH 1.930 (0.465-4.680) mIU/L Urine Color Urine Appearance (Clear) Urine pH (5.0-8.0) Ur Specific [place] (1.001-1.035) Urine Protein (Negative) Urine Glucose (UA) (Negative) Urine Ketones (Negative) Urine Blood (Negative) Urine Nitrite (Negative) Urine Bilirubin (Negative) Urine Urobilinogen (<2.0) mg/dL Ur Leukocyte Esterase (Negative) Urine RBC (0-5) /hpf Urine WBC (0-5) /hpf Urine Mucus (None) /hpf 05/28/20 05/28/20 05/28/20 Range/Units 04:37 04:37 05:48 WBC (3.8-10.6) k/uL RBC (4.30-5.90) m/uL Hgb (13.0-17.5) gm/dL Hct (39.0-53.0) % MCV (80.0-100.0) fL MCH (25.0-35.0) pg MCHC (31.0-37.0) g/dL RDW (11.5-15.5) % Plt Count (150-450) k/uL Neutrophils % (Manual) % Lymphocytes % (Manual) % Monocytes % (Manual) % Eosinophils % (Manual) % Neutrophils # (Manual) (1.3-7.7) k/uL Lymphocytes # (Manual) (1.0-4.8) k/uL Monocytes # (Manual) (0-1.0) k/uL Eosinophils # (Manual) (0-0.7) k/uL Nucleated RBCs (0-0) /100 WBC Manual Slide Review Reactive Lymphocytes Macrocytosis PT (9.0-12.0) sec INR (<1.2) APTT (22.0-30.0) sec D-Dimer (<0.60) mg/L FEU Sodium (137-145) mmol/L Potassium (3.5-5.1) mmol/L Chloride (98-107) mmol/L Carbon Dioxide (22-30) mmol/L Anion Gap mmol/L BUN (9-20) mg/dL Creatinine (0.66-1.25) mg/dL Est GFR (CKD-EPI)AfAm (>60 ml/min/1.73 sqM) Est GFR (CKD-EPI)NonAf (>60 ml/min/1.73 sqM) Glucose (74-99) mg/dL Calcium (8.4-10.2) mg/dL Total Bilirubin (0.2-1.3) mg/dL AST (17-59) U/L ALT (4-49) U/L Alkaline Phosphatase (38-126) U/L Troponin I 0.021 (0.000-0.034) ng/mL NT-Pro-B Natriuret Pep 8870 pg/mL Total Protein (6.3-8.2) g/dL Albumin (3.5-5.0) g/dL Lipase (23-300) U/L TSH (0.465-4.680) mIU/L Urine Color Yellow Urine Appearance Clear (Clear) Urine pH 6.0 (5.0-8.0) Ur Specific [place] 1.024 (1.001-1.035) Urine Protein 2+ H (Negative) Urine Glucose (UA) 4+ H (Negative) Urine Ketones Negative (Negative) Urine Blood Moderate H (Negative) Urine Nitrite Negative (Negative) Urine Bilirubin Negative (Negative) Urine Urobilinogen <2.0 (<2.0) mg/dL Ur Leukocyte Esterase Negative (Negative) Urine RBC <1 (0-5) /hpf Urine WBC 4 (0-5) /hpf Urine Mucus Rare H (None) /hpf Disposition Clinical Impression: New onset a-fib, Heart failure, Hypoxia, Elevated troponin, Elevated lipase, Transaminitis, Hyperglycemia due to type 2 diabetes mellitus Disposition: ADMITTED IP TO THIS HOSP Condition: Serious
[2020-05-28 04:59] LABS: HCT 28.3 % (39.0-53.0); HGB 9.5 gm/dL (13.0-17.5); MCH 34.5 pg (25.0-35.0); MCHC 33.7 g/dL (31.0-37.0); MCV 102.4 fL (80.0-100.0); Macrocytosis Slight; Mean Platelet Volume 8.1; Platelet Count 227 k/uL (150-450); RBC 2.76 m/uL (4.30-5.90); RDW 14.7 % (11.5-15.5); WBC 2.2 k/uL (3.8-10.6)
[2020-05-28 05:05] LABS: INR 1.1 (<1.2); Partial Thromboplastin Time 31.8 sec (22.0-30.0); Prothrombin Time 10.8 sec (9.0-12.0)
[2020-05-28 05:06] LABS: Albumin 3.3 g/dL (3.5-5.0); Calcium 8.3 mg/dL (8.4-10.2); D-Dimer 1.27 mg/L FEU (<0.60); Potassium 3.2 mmol/L (3.5-5.1); Total Protein 5.7 g/dL (6.3-8.2)
--- NOTE | 2020-05-28 05:06 | XR ---
EXAMINATION TYPE: XR chest 2V DATE OF EXAM: 05/28/2020 COMPARISON: 05/18/2019 HISTORY: Hypoxemia TECHNIQUE: FINDINGS: There is some blunting of both costophrenic angles. There are chest leads. Heart is top nor mal in size. There is minimal pulmonary congestion. IMPRESSION: New small pleural effusions and mild pulmonary congestion compared to old exam and consis tent with minimal heart failure. No pulmonary consolidation.
[2020-05-28 05:23] LABS: Eosinophils # (M) 0.04 k/uL (0-0.7); Monocytes # (M) 0.11 k/uL (0-1.0); Neutrophils # (M) 1.14 k/uL (1.3-7.7); Neutrophils % (M) 52 %; Nucleated Red Blood Cells 0 /100 WBC (0-0); Total Cells Counted 100
[2020-05-28 05:24] LABS: Reactive Lymphocytes Present
--- NOTE | 2020-05-28 05:40 | CT ---
EXAMINATION TYPE: CT chest angio for PE DATE OF EXAM: 05/28/2020 COMPARISON: None HISTORY: R/O PE Chest pain CT DLP: 576.20 mGycm Automated exposure control for dose reduction was used. CONTRAST: Performed with IV Contrast, patient injected with 70 mL of Isovue 370. There are 3-D post processed images. There is mild diffuse pulmonary interstitial edema. There are bilateral pleural effusions. Heart is b orderline enlarged. There is no evidence of aortic aneurysm or dissection. There is enlarged pretracheal lymph node that measures 17 mm. There is normal contrast opacification of the pulmonary arteries. There are no filling defects. Thoracic vertebra have normal alignment. There is spurring of the endplates. There is no thoracic com pression fracture. Upper abdominal soft tissues are intact. IMPRESSION: No evidence of pulmonary embolism. Pleural effusions with interstitial mild pulmonary infiltrates and mild cardiomegaly suggestive of co ngestive heart failure.
[2020-05-28 05:57] LABS: Appearance,Urine Clear (Clear); Bilirubin,Urine Negative (Negative); Blood,Urine Moderate (Negative); Color,Urine Yellow; Glucose,Urine (UA) 4+ (Negative); Ketones,Urine Negative (Negative); Leukocyte Esterase,Urine Negative (Negative); Mucus,Urine Rare /hpf; Nitrite,Urine Negative (Negative); Protein,Urine 2+ (Negative); RBC,Urine <1 /hpf (0-5); Specific Gravity,Urine 1.024 (1.001-1.035); Urobilinogen,Urine <2.0 mg/dL (<2.0); WBC,Urine 4 /hpf (0-5)
[2020-05-28] MEDS ORDERED: Potassium Replacement Protocol 1 EACH MISC MISCELLANE PRN (06:29)
[2020-05-28] MEDS: FUROSEMIDE 10 MG/ML 4 ML VIAL IV SCH ×2 (07:20→20:52)
[2020-05-28] MEDS: POTASSIUM CHLORIDE ER 20 MEQ TAB.ER PO SCH ×2 (07:21→08:08)
[2020-05-28 07:28] LABS: Glucose,Whole Blood 275 mg/dL (75-99)
--- NOTE | 2020-05-28 07:33 | CT ---
EXAMINATION TYPE: CT abdomen pelvis w con DATE OF EXAM: 05/28/2020 COMPARISON: None HISTORY: elevated lipase and transaminase CT DLP: 1715.8 mGycm Automated exposure control for dose reduction was used. CONTRAST: CT scan of the abdomen pelvis is performed with IV Contrast, patient injected with 100 mL of Isovue 3 00. FINDINGS- LUNG BASES-bilateral pleural effusion is seen with bilateral lower lobe infiltrate.. LIVER/GB-gallbladder is decompressed and limited. Liver is somewhat heterogeneous pattern.. PANCREAS- No gross abnormality is seen. SPLEEN- No gross abnormality is seen. ADRENALS- No gross abnormality is seen. KIDNEYS/BLADDER- no hydronephrosis nephrolithiasis or renal mass. Nonspecific perinephric stranding. Left-sided parapelvic renal cysts are noted. Small hypodensity in the anterior cortex of left kidney is too small to characterize but statistically most likely related to cyst. BOWEL-bowel gas pattern nonspecific. LYMPH NODES- No greater than 1cm abdominal or pelvic lymph nodes areappreciated. OSSEOUS STRUCTURES-severe hypertrophic and multilevel degenerative disc disease.. OTHER- atherosclerotic change aorta with no evidence of aneurysm . Small periumbilical fat-containin g hernia. Bilateral fat-containing inguinal hernias. IMPRESSION- 1. There is somewhat heterogeneous pattern can be associated with hepatocellular disease correlate cl inically. 2. Parapelvic left renal cysts with nonspecific perinephric stranding correlate with urinalysis. No h ydronephrosis. 3. Severe multilevel degenerative disc disease 4. Bilateral infiltrate and small effusion
[2020-05-28] MEDS: INSULIN ASPART (NovoLOG) 100 UNIT/ML VIAL SQ SCH ×4 (08:07→20:52)
[2020-05-28] MEDS ORDERED: ZOLPIDEM 10 MG TAB PO PRN (09:11)
--- NOTE | 2020-05-28 10:20 | P.HPIM ---
History of Present Illness H&P Date: 05/28/20 Chief Complaint: New onset afib/ Abd pain This is a 75-year-old male of Dr. Schmid with previous known medical history significant for hypertension, CVA/TIA, hyperlipidemia, diabetes mellitus type 2, enlarged prostate, insomnia, obesity, skin cancer. patient p resented to Dr. Schmid's office yesterday with generalized feelings of not feeling well mild shortness of breath and abdominal pain. Patient was found to be in A. fib which was new for him, patient was started on bystolic and xarelto with a referral to cardiology. Later on that evening patient drink tonic water for restless leg and developed abdominal generalized abdominal pain and stomach spasms then presented to the emergency room. Patient remains in A. fib, rate is controlled in the 80s at this time. Labs reveal patient has acute pancreatitis with lipase in the 400s. d-dimer was elevated and patient had a CT angiogram which ruled out PE. AST and ALTs were elevated as well, patient admits to drinking 6-[address] of the abdomen and pelvis showed somewhat heterogeneous pattern can be associated with hepatocellular disease, left renal cyst, with no hydronephrosis, severe degenerative disc disease, bilateral infiltrate and small effusion. Patient will be admitted with cardiology consult. Review of Systems Constitutional: Denies weight gain, Denies chills, Denies chronic headaches, Denies lethargy, Denies malaise, Denies weakness Eyes: right loss of vision (Secondary to nail in the right eye followed by a retinal detachment years later.) Ears: deny: decreased hearing Ears, nose, mouth and throat: denies vertigo, Denies dysphagia, Denies neck lump, Denies sore throat Cardiovascular: Reports decreased exercise tolerance, Reports dyspnea on exertion, denies lightheadedness, Denies chest pain, Denies orthopnea, Denies rapid heart beat, Denies shortness of breath, Denies syncope Respiratory: denies sleep apnea, Reports snoring, Denies congestion, Denies cough, Denies cough with sputum, Denies home oxygen, Denies wheezing Gastrointestinal: mild abdominal pain withbloating, Denies heartburn, Denies loss of appetite, Denies melena, Denies nausea, Denies vomiting Genitourinary: Reports nocturia, Denies dysuria Musculoskeletal: Denies myalgias Musculoskeletal: absent: ankle pain, ankle stiffness, ankle swelling, elbow pain, elbow stiffness, elbow swelling, foot pain, foot stiffness, foot swelling, hand pain, hand stiffness, hand swelling, hip pain, hip stiffness, hip swelling, knee pain, knee stiffness, knee swelling, shoulder pain, shoulder stiffness, shoulder swelling, wrist pain, wrist stiffness, wrist swelling Integumentary: Denies pruritus, Denies rash Neurological: denies numbness or tingling Denies change in speech, Denies confusion, Denies gait dysfunction, Denies migraines, Denies motor disturbance, Denies transient paralysis, Denies tremors, Denies vertigo, Denies weakness, Denies visual changes Psychiatric: Denies anxiety, Denies depression Endocrine: Denies fatigue, Denies weight change Past Medical History Past Medical History: Atrial Fibrillation, Cancer, CVA/TIA, Diabetes Mellitus, Hyperlipidemia, Hypertension, Sleep Apnea/CPAP/BIPAP Additional Past Medical History / Comment(s): CVA 2014 with slight speech change, unable to tolerate statins-leg pain, sleeping disorder, 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 afib History of Any Multi-Drug Resistant Organisms: None Reported Past Surgical History: Back Surgery, Bladder Surgery, Hernia Repair, Orthopedic Surgery Additional Past Surgical History / Comment(s): eye surgery -left eye- metal sutures, 2012 excised lt eye lid lesion with rhomboid advancement flap closure, rt inguinal hernia repair, colonoscopy, lamenectomy, skin cancer removals. Past Anesthesia/Blood Transfusion Reactions: No Reported Reaction Past Psychological History: No Psychological Hx Reported Smoking Status: Never smoker Past Alcohol Use History: Occasional Past Drug Use History: None Reported - Past Family History Sister(s) Family Medical History: No Reported History (Patient has 2 sisters no major medical problems.) Son(s) Family Medical History: No Reported History (Patient has 2 sons no major medical problems.) Father Family Medical History: Myocardial Infarction (CA) (Father at age of 59 from [place].) Additional Family Medical History / Comment(s): age 59 from [place] Mother Family Medical History: Coronary Artery Disease (CAD) (Mother at age of 83 from CAD and congestive heart failure and she was diabetic.), Diabetes Mellitus Additional Family Medical History / Comment(s): cabg Medications and Allergies Home Medications Medication Instructions Recorded Confirmed Type Zolpidem Tartrate [Ambien] 10 mg PO HS PRN 10/31/14 05/28/20 History amLODIPine BESYLATE [Norvasc] 10 mg PO DAILY 10/31/14 05/28/20 History Bisoprolol-Hctz 5-6.25 mg [Ziac 1 tab PO DAILY 03/25/15 05/28/20 History 5-6.25 MG] Cholecalciferol [Vitamin D3 (25 1,000 unit PO DAILY 05/18/19 05/28/20 History Mcg = 1000 Iu)] Losartan Potassium 100 mg PO DAILY 05/18/19 05/28/20 History Potassium Chloride ER [K-Dur 20] 20 meq PO DAILY 05/18/19 05/28/20 History Aspirin 81 mg PO DAILY 05/28/20 05/28/20 History Atorvastatin [Lipitor] 80 mg PO HS 05/28/20 05/28/20 History Cyanocobalamin (Vitamin B-12) 1,000 mcg PO DAILY 05/28/20 05/28/20 History [Vitamin B-12] Folic Acid 1 mg PO DAILY 05/28/20 05/28/20 History Nebivolol HCl [Bystolic] 10 mg PO HS 05/28/20 05/28/20 History Rivaroxaban [Xarelto] 20 mg PO HS 05/28/20 05/28/20 History Ubidecarenone [Co Q-10] 300 mg PO HS 05/28/20 05/28/20 History metFORMIN HCL [metFORMIN HCL ER] 500 mg PO BID 05/28/20 05/28/20 History sitaGLIPtin [Januvia] 100 mg PO DAILY 05/28/20 05/28/20 History Allergies Allergy/AdvReac Type Severity Reaction Status Date / Time venom-wasp [wasp venom] Allergy Swelling Verified 05/28/20 08:22 Physical Exam Vitals: Vital Signs Temp Pulse Resp BP Pulse Ox 05/28/20 05:59 90 18 142/92 94 L 05/28/20 03:47 99.1 F 90 18 152/75 96 Intake and Output 05/27/20 05/28/20 05/28/20 22:59 06:59 14:59 Other: Weight 101.151 kg - Constitutional General appearance: obese - EENT Eyes: anicteric sclerae, EOMI, PERRLA, no ptosis, no scleral icterus, normal appearance ENT: hearing grossly normal, NA/AT, normal oropharynx, no thrush Ears: bilateral: normal - Neck Neck: no lymphadenopathy, normal ROM, no rigidity, no stridor, no thyromegaly Carotids: left: upstroke delayed Thyroid: bilateral: normal size - Respiratory Respiratory: bilateral: diminished, negative: dullness, rales, rhonchi, wheezing, prolonged expiration, prolonged inspiration - Cardiovascular Rhythm: irregular rate and rhythm Heart sounds: S1, S2 Abnormal Heart Sounds: systolic murmur, no S3 Gallop, no S4 Gallop, no click - Gastrointestinal General gastrointestinal: normal bowel sounds, soft, no splenomegaly, no tenderness, no umbilical hernia, no ventral hernia - Integumentary Integumentary: normal, normal turgor - Neurologic Neurologic: CNII-XII intact - Musculoskeletal Musculoskeletal: gait normal, strength equal bilaterally - Psychiatric Psychiatric: A&O x's 3, appropriate affect, intact judgment & insight Results CBC & Chem 7: 05/28/20 04:37 05/28/20 04:37 Labs: Abnormal Lab Results - Last 24 Hours (Table) 05/28/20 05/28/20 05/28/20 Range/Units 04:37 04:37 04:37 WBC 2.2 L (3.8-10.6) k/uL RBC 2.76 L (4.30-5.90) m/uL Hgb 9.5 L (13.0-17.5) gm/dL Hct 28.3 L (39.0-53.0) % MCV 102.4 H (80.0-100.0) fL Neutrophils # (Manual) 1.14 L (1.3-7.7) k/uL Lymphocytes # (Manual) 0.90 L (1.0-4.8) k/uL APTT 31.8 H (22.0-30.0) sec D-Dimer 1.27 H (<0.60) mg/L FEU Sodium 135 L (137-145) mmol/L Potassium 3.2 L (3.5-5.1) mmol/L Glucose 222 H (74-99) mg/dL POC Glucose (mg/dL) (75-99) mg/dL Calcium 8.3 L (8.4-10.2) mg/dL AST 112 H (17-59) U/L ALT 132 H (4-49) U/L Total Protein 5.7 L (6.3-8.2) g/dL Albumin 3.3 L (3.5-5.0) g/dL Lipase 485 H (23-300) U/L Urine Protein (Negative) Urine Glucose (UA) (Negative) Urine Blood (Negative) Urine Mucus (None) /hpf 05/28/20 05/28/20 Range/Units 05:48 07:25 WBC (3.8-10.6) k/uL RBC (4.30-5.90) m/uL Hgb (13.0-17.5) gm/dL Hct (39.0-53.0) % MCV (80.0-100.0) fL Neutrophils # (Manual) (1.3-7.7) k/uL Lymphocytes # (Manual) (1.0-4.8) k/uL APTT (22.0-30.0) sec D-Dimer (<0.60) mg/L FEU Sodium (137-145) mmol/L Potassium (3.5-5.1) mmol/L Glucose (74-99) mg/dL POC Glucose (mg/dL) 275 H (75-99) mg/dL Calcium (8.4-10.2) mg/dL AST (17-59) U/L ALT (4-49) U/L Total Protein (6.3-8.2) g/dL Albumin (3.5-5.0) g/dL Lipase (23-300) U/L Urine Protein 2+ H (Negative) Urine Glucose (UA) 4+ H (Negative) Urine Blood Moderate H (Negative) Urine Mucus Rare H (None) /hpf Thrombosis Risk Factor Assmnt - DVT/VTE Prophylaxis DVT/VTE Prophylaxis: Pharmacologic Prophylaxis ordered (on Xarelto) Assessment and Plan Assessment: 1. Acute CHF, likely systolic with preserved EF. chest x-ray showed mild pulmonary congestion, consistent with minimal heart failure. Continue 40 mg IV Lasix every 12 hours. Cardiology on consult and echo ordered. 2. A. fib with RVR. likely related to underlying sleep apnea, history of insomnia with restless leg. Rate currently controlled on by Bystolic and Xa relto for anticoagulation. 3. Acute pancreatitis. lipase 485 on admission continue with gentle diet repeat lipase in the morning. 4. Diabetes mellitus type 2. hold metformin 500 at this time. continue tradjenta 5 mg daily and sliding scale insulin for now. 5. History of CVA in the past. continue aspirin 325 daily and Lipitor 80 mg at bed. 6. Hypertension and hypertensive cardiovascular disease. Continue patient on losartan 100 mg orally once every day, amlodipine 10 mg orally once every day. 7. Hyperlipidemia. Continue patient on Lipitor 80 mg orally once every day. 8. 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 9. DVT prophylaxis. on Xarelto 10. GI prophylaxis. Continue PPI. Patient is full code. Patient will be admitted to the hospital for minimum of 2 night stay. Impression and plan of care have been directed as dictated by the signing physician. Stacie Pak nurse practitioner acting as scribe for signing physician.
--- NOTE | 2020-05-28 11:42 | ECHOF ---
Referral Reason:Heart Failure, new afib MEASUREMENTS -------- HEIGHT: 170.2 cm WEIGHT: 101.2 kg BP: 142/92 RVIDd: 3.3 cm (< 3.3) IVSd: 1.3 cm (0.6 - 1.1) LVIDd: 4.6 cm (3.9 - 5.3) LVPWd: 1.3 cm (0.6 - 1.1) IVSs: 1.9 cm LVIDs: 3.2 cm LVPWs: 1.8 cm LA Diam: 3.7 cm (2.7 - 3.8) LAESV Index (A-L): 27.56 ml/m Ao Diam: 3.7 cm (2.0 - 3.7) AV Cusp: 1.8 cm (1.5 - 2.6) MV EXCURSION: 23.948 mm (> 18.000) MV EF SLOPE: 153 mm/s (70 - 150) EPSS: 0.4 cm AR PHT: 311 ms RAP: 15.00 mmHg RVSP: 52.43 mmHg FINDINGS -------- Atrial fibrillation. This was a technically adequate study. The left ventricular size is normal. There is mild concentric left ventricular hypertrophy. Overa ll left ventricular systolic function is normal with, an EF between 55 - 60 %. The right ventricle is mildly enlarged. Normal LA size by volume 22+/-6 ml/m2. The right atrium is normal in size. Interatrial and interventricular septum intact. There is mild aortic regurgitation. Mild mitral annular calcification present. Mild tricuspid regurgitation present. There is moderate pulmonary hypertension. The right ventric ular systolic pressure, as measured by Doppler, is 52.43mmHg. Trace/mild (physiologic) pulmonic regurgitation. The aortic root size is normal. The inferior vena cava is dilated with poor inspiratory collapse which is consistent with estimated r ight atrial pressure of 15 mmHg. There is no pericardial effusion. CONCLUSIONS -------- 1. The left ventricular size is normal. 2. There is mild concentric left ventricular hypertrophy. 3. Overall left ventricular systolic function is normal with, an EF between 55 - 60 %. 4. The right ventricle is mildly enlarged. 5. There is mild aortic regurgitation. 6. Mild tricuspid regurgitation present. 7. There is moderate pulmonary hypertension. 8. The right ventricular systolic pressure, as measured by Doppler, is 52.43mmHg. 9. Trace/mild (physiologic) pulmonic regurgitation. 10. The inferior vena cava is dilated with poor inspiratory collapse which is consistent with estimat ed right atrial pressure of 15 mmHg. 11. There is no pericardial effusion. FINAL INSPECTOR AND TESTER: Andie Mason RDCS
[2020-05-28 12:46] LABS: Glucose,Whole Blood 189 mg/dL (75-99)
[2020-05-28 17:25] LABS: Glucose,Whole Blood 160 mg/dL (75-99)
[2020-05-28 20:22] LABS: Glucose,Whole Blood 209 mg/dL (75-99)
[2020-05-28] MEDS: RIVAROXABAN 20 MG TAB PO SCH (20:53)
[2020-05-28] MEDS ORDERED: ATORVASTATIN 80 MG TAB PO SCH (21:00)
[2020-05-28] MEDS ORDERED: NON FORMULARY DRUG (Ubidecarenone [Co Q-10] 300 MG Capsule) PO SCH (21:00)
[2020-05-28] MEDS: NEBIVOLOL 5 MG TAB PO SCH (21:12)
[2020-05-29] MEDS ORDERED: ASPIRIN 325 MG TAB PO SCH (06:03)
[2020-05-29 06:16] LABS: Glucose,Whole Blood 169 mg/dL (75-99)
[2020-05-29] MEDS: INSULIN ASPART (NovoLOG) 100 UNIT/ML VIAL SQ SCH ×4 (06:22→21:29)
[2020-05-29] MEDS: FUROSEMIDE 10 MG/ML 4 ML VIAL IV SCH ×2 (06:22→18:05)
[2020-05-29 08:06] LABS: Albumin 3.3 g/dL (3.5-5.0); Calcium 8.1 mg/dL (8.4-10.2); Potassium 3.2 mmol/L (3.5-5.1); Total Bilirubin 0.8 mg/dL (0.2-1.3); Total Protein 5.8 g/dL (6.3-8.2)
[2020-05-29 08:17] LABS: HCT 29.3 % (39.0-53.0); HGB 9.7 gm/dL (13.0-17.5); MCH 34.7 pg (25.0-35.0); MCHC 33.1 g/dL (31.0-37.0); MCV 104.8 fL (80.0-100.0); Macrocytosis Moderate; Mean Platelet Volume 7.9; Platelet Count 233 k/uL (150-450); RDW 14.3 % (11.5-15.5)
--- NOTE | 2020-05-29 08:42 | US ---
EXAMINATION TYPE: US abdomen complete DATE OF EXAM: 05/29/2020 COMPARISON: CT yesterday CLINICAL HISTORY: gallstone. Patient states no symptoms, exam done portable. EXAM MEASUREMENTS: Liver Length: 16.0 cm Gallbladder Wall: 0.2 cm CBD: 0.4 cm Spleen: 10.6 cm Right Kidney: 11.3 x 6.2 x 6.1 cm Left Kidney: 11.4 x 5.5 x 4.8 cm Pancreas: visualized portions appear heterogeneous, limited by overlying midline bowel gas Liver: heterogeneous with 1.5 x 1.8cm hypoechoic area adjacent to gallbladder Gallbladder: no stones, possible focal area of fluid anterior to gallbladder Evidence for sonographic Tompkins's sign: no CBD: visualized portion wnl, limited by overlying bowel gas Spleen: wnl Right Kidney: wnl Left Kidney: multiple parapelvic cysts vs. mild hydronephrosis Upper IVC: wnl Abd Aorta: visualized portions wnl, limited by overlying midline bowel gas Bilateral pleural effusions noted The visualized liver is heterogeneous. Evaluation for focal masses suboptimal due to the heterogeneit y. No intrahepatic ductal dilatation. Technologist reardon small hypoechoic area near the gallbladder f french presumed focal fatty sparing. The intrahepatic portion of the IVC and visualized abdominal aorta are within normal limits. There is no evidence of cholelithiasis. Common bile duct is unremarkable . The visualized portions of the pancreas are heterogeneous. Portions are suboptimally evaluated on images saved secondary to overlying bowel gas per technologist. The spleen is unremarkable. Kidneys are symmetric and free of hydronephrosis. Simple appearing parapelvic cyst left kidney are redemonstr ated mimicking left-sided mild hydronephrosis. No renal lesions are seen on images stated. Small to t iny bilateral pleural effusions redemonstrated during real time scanning correlates with recent CT. IMPRESSION: Gallbladder shows improved distention. No intraluminal gallstones noted. Diffuse fatty in filtration of liver redemonstrated.
[2020-05-29] MEDS: CYANOCOBALAMIN 500 MCG TAB PO SCH (08:54)
[2020-05-29] MEDS: FOLIC ACID 1 MG TAB PO SCH (08:54)
[2020-05-29] MEDS: LOSARTAN 50 MG TAB PO SCH (08:54)
[2020-05-29] MEDS: FAMOTIDINE 20 MG TAB PO SCH (08:54)
[2020-05-29] MEDS: CHOLECALCIFEROL 1,000 UNIT TAB PO SCH (08:54)
[2020-05-29] MEDS: LINAGLIPTIN 5 MG TABLET PO SCH (08:54)
[2020-05-29] MEDS: POTASSIUM CHLORIDE ER 20 MEQ TAB.ER PO SCH (08:54)
[2020-05-29] MEDS: amLODIPine 10 MG TAB PO SCH (08:54)
[2020-05-29] MEDS: ASPIRIN 81 MG PO SCH (08:54)
[2020-05-29] MEDS ORDERED: ASPIRIN 81 MG PO SCH (09:00)
[2020-05-29 11:08] LABS: Lymphocytes # (M) 1.02 k/uL (1.0-4.8); Monocytes # (M) 0.18 k/uL (0-1.0); Neutrophils # (M) 0.74 k/uL (1.3-7.7); Neutrophils % (M) 37 %
[2020-05-29 11:10] LABS: Blast Cells # (M) 0.08 k/uL (0); Nucleated Red Blood Cells 0 /100 WBC (0-0); Total Cells Counted 200
[2020-05-29 11:14] LABS: Anisocytosis (M) Present; Poikilocytosis (M) Present
[2020-05-29 11:24] VITALS: BMI 34.5
[2020-05-29 11:52] LABS: Glucose,Whole Blood 310 mg/dL (75-99)
--- NOTE | 2020-05-29 12:13 | P.PN ---
Subjective Progress Note Date: 05/29/20 This is a 75-year-old male of Dr. Schmid with previous known medical history significant for hypertension, CVA/TIA, hyperlipidemia, diabetes mellitus type 2, enlarged prostate, insomnia, obesity, skin cancer. patient presented to Dr. Schmid's office yesterday with generalized feelings of not feeling well mild shortness of breath and abdominal pain. Patient was found to be in A. fib which was new for him, patient was started on bystolic and xarelto with a referral to cardiology. Later on that evening patient drink tonic water for restless leg and developed abdominal generalized abdominal pain and stomach spasms then presented to the emergency room. Patient remains in A. fib, rate is controlled in the 80s at this time. Labs reveal patient has acute pancreatitis with lipase in the 400s. d-dimer was elevated and patient had a CT angiogram which ruled out PE. AST and ALTs were elevated as well, patient admits to drinking 6-[address] of the abdomen and pelvis showed somewhat heterogeneous pattern can be associated with hepatocellular disease, left renal cyst, with no hydronephrosis, severe degenerative disc disease, bilateral infiltrate and small effusion. Patient will be admitted with cardiology consult. 05/29: Patient evaluated sitting on edge of bed eating breakfast this morning. Reports that he is doing well, denies any abdominal pain today. Liver enzymes remain elevated AST 66 ALTs 137, patient denies being a heavy drinker admitted to 6-12 beers a week. Consult for Dr. Trevon Beltre in place. White blood cells 2.0 hemoglobin 9.7, sodium 139 potassium 3.2 BUN 23 creatinine 1.24. Abdominal ultrasound revealed gallbladder shows improved distention no intraluminal gallstones noted diffuse fatty infiltration of liver rate demonstrated. EF was 55-60%, mild AR and TR present with moderate pulmonary hypertension no perica rdial effusion. Vital signs remained stable, patient afebrile pulse rate 79, respirations 18, blood pressure 143/80, pulse ox 95% on room air. Physical Exam - Constitutional General appearance: obese - EENT Eyes: anicteric sclerae, EOMI, PERRLA, no ptosis, no scleral icterus, normal appearance ENT: hearing grossly normal, NA/AT, normal oropharynx, no thrush Ears: bilateral: normal - Neck Neck: no lymphadenopathy, normal ROM, no rigidity, no stridor, no thyromegaly Carotids: left: upstroke delayed Thyroid: bilateral: normal size - Respiratory Respiratory: bilateral: diminished, negative: dullness, rales, rhonchi, wheezing, prolonged expiration, prolonged inspiration - Cardiovascular Rhythm: irregular rate and rhythm, controlled Heart sounds: S1, S2 Abnormal Heart Sounds: systolic murmur, no S3 Gallop, no S4 Gallop, no click - Gastrointestinal General gastrointestinal: normal bowel sounds, soft, no splenomegaly, no tenderness, no umbilical hernia, no ventral hernia - Integumentary Integumentary: normal, normal turgor - Neurologic Neurologic: CNII-XII intact - Musculoskeletal Musculoskeletal: gait normal, strength equal bilaterally - Psychiatric Psychiatric: A&O x's 3, appropriate affect, intact judgment & insight Objective - Vital Signs Vital signs: Vital Signs Temp 98.9 F 05/29/20 04:00 Pulse 71 05/29/20 04:00 Resp 18 05/29/20 04:00 BP 136/70 05/29/20 04:00 Pulse Ox 93 L 05/29/20 04:00 Intake & Output 05/28/20 05/29/20 05/29/20 18:59 06:59 18:59 Intake Total 300 Output Total 1750 Balance -1450 Weight 100.1 kg Intake: Oral 300 Output: Urine 1750 Other: Voiding Method Urinal # Voids 1 - Labs CBC & Chem 7: 05/29/20 07:15 05/29/20 07:15 Labs: Abnormal Lab Results - Last 24 Hours (Table) 05/28/20 05/28/20 05/28/20 Range/Units 12:45 17:23 20:20 POC Glucose (mg/dL) 189 H 160 H 209 H (75-99) mg/dL 05/29/20 Range/Units 06:05 POC Glucose (mg/dL) 169 H (75-99) mg/dL Assessment and Plan Assessment: 1. Acute CHF, likely systolic. chest x-ray showed mild pulmonary congestion, consistent with minimal heart failure. Continue 40 mg IV Lasix every 12 hours. Cardiology on consult and echo ordered. EF was 55-60%. 2. A. fib with RVR. likely related to underlying sleep apnea, history of insomnia with restless leg. Rate currently controlled on by Bystolic and Xarelto for anticoagulation. 3. Acute pancreatitis. lipase 485 on admission trending down to 230 today 4. Diabetes mellitus type 2. hold metformin 500 at this time. continue tradjenta 5 mg daily and sliding scale insulin for now. 5. History of CVA in the past. continue aspirin 325 daily and Lipitor 80 mg at bed. 6. Hypertension and hypertensive cardiovascular disease. Continue patient on losartan 100 mg orally once every day, amlodipine 10 mg orally once every day. 7. Hyperlipidemia. Continue patient on Lipitor 80 mg orally once every day. 8. 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 9. DVT prophylaxis. on Xarelto 10. GI prophylaxis. Continue PPI. 11. Leukopenia and anemia. We'll repeat labs in the morning possibly related to liver disease. 12. Normal results of liver function: Ultrasound showed possible fatty liver disease and consult for Dr. Trevon Beltre. Patient is full code. Patient will be admitted to the hospital for minimum of 2 night stay. Impression and plan of care have been directed as dictated by the signing physician. Stacie Pak nurse practitioner acting as scribe for signing stephanie hernandez.
--- NOTE | 2020-05-29 15:39 | CONS ---
CONSULTATION Mr. Gillespie is a 75-year-old male with known history of hypertension, hyperlipidemia, diabetes mellitus, history of cerebrovascular accident as well history of alcohol intake who recently has not been feeling well, tired. He was seen by Dr. Pelaez, who initiated treatment with anticoagulation. He was referred to [facility], but he has not seen them. Subsequently patient started to feel more tired, some abdominal discomfort and abdominal spasm, came into the emergency room and subsequently was admitted. The patient according to him has been active physically but feeling more tired. He was in [employer]. He has no peripheral edema. No PND. No orthopnea. No syncope. He has no prior cardiac history and he does not know how old is the atrial fibrillation in 2019. He was in sinus mechanism and had normal systolic function. He drinks about 6-12 beers a week, according to him, and drinks tea. He is nonsmoker. HOME MEDICATIONS: His medications at home include Januvia, Xarelto 20 mg daily, Bystolic 10 mg daily, metformin 500 mg twice a day, Ziac 5/6.25 mg daily, Lipitor 80 mg daily, Norvasc 10 mg daily, aspirin once a day, coenzyme Q10 and vitamin B12. REVIEW OF SYSTEMS: RESPIRATORY SYSTEM: He has some dyspnea on exertion. No recent wheezing or cough. GI SYSTEM: No recent GI bleeding. No peptic ulcer disease. SYSTEM: No dysuria or hematuria. NERVOUS SYSTEM: He has a history of stroke but no seizure. PHYSICAL EXAMINATION: He is a 75-year-old male, alert, oriented, in no apparent distress. Blood pressure 136/70 with a heart rate in the 70s. HEAD: Normocephalic. Eyes: Sclerae anicteric. NECK: Good carotid upstroke. No bruit. No jugular venous distention. LUNGS: Clear to auscultation. HEART: Irregularly irregular. S1, S2. No S3, with a systolic murmur at the base. No diastolic murmur. No rub. ABDOMEN: Soft, nontender. Positive bowel sounds. No organomegaly. EXTREMITIES: No edema. Intact distal pulses. LAB DATA/IMAGING: Lab data revealed a white blood cell count of 2.2, hemoglobin 9.5, MCV of 102. BUN and creatinine of 19 and 1.17. Potassium 3.2. His lipase is 485. AST of 112, ALT 132. Troponin 0.021, 0.016 and less than 0.012. NT-proBNP of 8807. His EKG revealed atrial fibrillation with nonspecific ST-T wave changes. He underwent an echocardiogram that showed ejection fraction 55% to 60%. He had an abdominal CT scan that showed a parapelvic left renal cyst, bilateral infiltrate. He subsequently underwent an abdominal ultrasound that revealed diffuse fatty infiltration. His CT scan of the chest showed no pulmonary embolism with pleural effusion and mild infiltrate. His chest x- ray shows pleural effusion. IMPRESSION: 1. Atrial fibrillation that appears to be of recent onset, anticoagulated, rate controlled. 2. Elevated NT-proBNP with chest x-ray consistent with mild fluid overload, although on physical examination I see no peripheral edema. Could be related to diastolic dysfunction in the atrial fibrillation. 3. Evidence of pancreatitis; could be related to the alcohol intake with abnormal liver function test. 4. Bicytopenia; could be related to the alcohol intake, although etiology is unclear. 5. History of diabetes. 6. History of hypertension. 7. History of hyperlipidemia. 8. History of stroke. RECOMMENDATIONS: From the cardiac standpoint, will continue present therapy. Patient is on IV diuretics; will continue that for the next 24 hours. Review his lab data. The patient will need to be evaluated regarding the reason for his leukopenia, which is new for him. Depending on those findings, further recommendations will be made. Thank you for this consult. Will follow with you. SCHUYLER / SHARAN: [id number] /
[2020-05-29 17:04] LABS: Glucose,Whole Blood 104 mg/dL (75-99)
[2020-05-29 21:16] LABS: Glucose,Whole Blood 283 mg/dL (75-99)
[2020-05-29] MEDS: NEBIVOLOL 5 MG TAB PO SCH (21:29)
[2020-05-29] MEDS: RIVAROXABAN 20 MG TAB PO SCH (21:29)
[2020-05-30 06:17] LABS: Glucose,Whole Blood 167 mg/dL (75-99)
--- NOTE | 2020-05-30 06:17 | CONS ---
CONSULTATION DATE OF DICTATION: 05/29/2020 REASON FOR CONSULTATION: Elevated LFTs. HISTORY OF PRESENT ILLNESS: The patient is a 75-year-old pleasant white male who was admitted to the hospital with some shortness of breath, not feeling well for the last 2 or 3 days duration. He went to see his primary care physician and he was noted to have new onset atrial fibrillation and he was sent to the emergency room and subsequently admitted to the hospital and Cardiology has been consulted. During this hospitalization, he was noted to have elevated LFTs and hence we are consulted in regards to this issue. The patient denies any abdominal pain. He does complain of some abdominal bloating. No nausea, no vomiting. Labs from yesterday showed a bilirubin of 1, AST and ALT are 112 and 132 respectively. Alkaline phosphatase was 84. On review of his records, his serum transaminases are within normal limits a year ago. The patient denies any new medications that were started recently except for some diabetic medication and has no prior history of jaundice or hepatitis in the past. No history of alcohol abuse. He does drink on a social basis. He did have a CT of the abdomen and pelvis done that showed liver with heterogeneous pattern consistent with hepatocellular disease, left renal cyst and small pleural effusion. He also had ultrasound of the abdomen done this morning that once again showed heterogeneous appearing liver, otherwise unremarkable. PAST MEDICAL HISTORY: Significant for hypertension, hyperlipidemia, diabetes mellitus, atrial fibrillation on Xarelto. MEDICATIONS: Medications at home include Januvia, Xarelto, Bystolic, folic acid, Ambien, K-Dur, metformin, losartan, vitamin D3, Lipitor, Norvasc, bisoprolol, and aspirin. ALLERGIES: WASP VENOM. SOCIAL HISTORY: Occasional alcohol use. No smoking. FAMILY HISTORY: Father coronary artery disease. Mother coronary artery disease and diabetes mellitus. REVIEW OF SYSTEMS: CARDIOPULMONARY: He denies any chest pain, some shortness of breath. GENITOURINARY: No dysuria or hematuria. MUSCULOSKELETAL: Unremarkable. SKIN: Unremarkable. ENDOCRINE: Unremarkable. PSYCHIATRIC: Unremarkable. NEUROLOGY: Unremarkable. ENT/VISION: Unremarkable. GI: As mentioned above. CONSTITUTIONAL: No recent weight loss. No fever, chills, night sweats. PHYSICAL EXAMINATION: He appears comfortable, in no apparent distress. Vital signs are stable. Blood pressure 139/86, pulse rate 85 per minute and afebrile. HEENT EXAMINATION: Unremarkable. Conjunctivae pink. Sclerae anicteric. Oral cavity, no lesions. NECK: No JVD or lymph node enlargement. CHEST: Clear to auscultation. HEART: Regular rate and rhythm. ABDOMEN: Soft. Bowel sounds are positive. Liver and spleen were not palpable. EXTREMITIES: No pedal edema. SKIN: No rashes. NEUROLOGIC: Alert and oriented x3. No focal deficits. He did have a 2D echocardiogram that showed normal left ventricular size and ejection fraction. Right ventricle was slightly enlarged with mild aortic regurgitation and tricuspid regurgitation. Moderate pulmonary hypertension. Labs from today: AST and ALT are 66 and 137 respectively. T-bilirubin and alkaline phosphatase are within normal. Albumin is 3.3. Hemoglobin 9.7, WBC 2, platelets 233, blasts were 4% and MCV is 104. IMPRESSION: 1. Mild elevation of serum transaminases noted during this hospitalization in this patient with no abdominal symptoms. T-bilirubin and alkaline phosphatase are within normal limits. He states that he was recently started on statins for hypercholesteremia and possibility of medication induced hepatitis needs to be considered. Other etiologies cannot be excluded. It appears patient does not have any history of chronic liver disease and no history of significant alcohol abuse ultrasound and CT scan showed evidence of heterogeneous appearing liver, probably suggestive of fatty infiltration. 2. Longstanding history of diabetes mellitus. 3. Hypertension. 4. Hyperlipidemia. 5. New onset atrial fibrillation. Cardiology following the patient closely. RECOMMENDATION: 1. Obtain hepatitis serologies for A, B and C. 2. Repeat LFTs in the morning. 3. Hold atorvastatin. 4. Will monitor LFTs on a close basis. 5. We will follow with you closely. Thank you for this consultation. MMODL / IJN: [id number] /
[2020-05-30] MEDS: INSULIN ASPART (NovoLOG) 100 UNIT/ML VIAL SQ SCH ×4 (06:56→21:07)
[2020-05-30] MEDS: FUROSEMIDE 10 MG/ML 4 ML VIAL IV SCH (06:56)
[2020-05-30] MEDS: POTASSIUM CHLORIDE ER 20 MEQ TAB.ER PO SCH ×3 (08:04→12:25)
[2020-05-30] MEDS: FAMOTIDINE 20 MG TAB PO SCH (08:04)
[2020-05-30] MEDS: FOLIC ACID 1 MG TAB PO SCH (08:04)
[2020-05-30] MEDS: LINAGLIPTIN 5 MG TABLET PO SCH (08:04)
[2020-05-30] MEDS: LOSARTAN 50 MG TAB PO SCH (08:04)
[2020-05-30] MEDS: CHOLECALCIFEROL 1,000 UNIT TAB PO SCH (08:04)
[2020-05-30] MEDS: amLODIPine 10 MG TAB PO SCH (08:04)
[2020-05-30] MEDS: CYANOCOBALAMIN 500 MCG TAB PO SCH (08:04)
[2020-05-30] MEDS: ASPIRIN 81 MG PO SCH (08:04)
[2020-05-30 09:53] LABS: HCT 30.8 % (39.0-53.0); MCH 33.6 pg (25.0-35.0); MCHC 32.4 g/dL (31.0-37.0); MCV 103.6 fL (80.0-100.0); Macrocytosis Slight; Mean Platelet Volume 7.7; Platelet Count 268 k/uL (150-450); RBC 2.98 m/uL (4.30-5.90); RDW 14.7 % (11.5-15.5); WBC 2.3 k/uL (3.8-10.6)
[2020-05-30 09:57] LABS: Reticulocyte % 4.1 % (0.5-2.0)
--- NOTE | 2020-05-30 10:11 | P.PN ---
Subjective Progress Note Date: 05/30/20 This is a 75-year-old male of Dr. Schmid with previous known medical history significant for hypertension, CVA/TIA, hyperlipidemia, diabetes mellitus type 2, enlarged prostate, insomnia, obesity, skin cancer. patient presented to Dr. Schmid's office yesterday with generalized feelings of not feeling well mild shortness of breath and abdominal pain. Patient was found to be in A. fib which was new for him, patient was started on bystolic and xarelto with a referral to cardiology. Later on that evening patient drink tonic water for restless leg and developed abdominal generalized abdominal pain and stomach spasms then presented to the emergency room. Patient remains in A. fib, rate is controlled in the 80s at this time. Labs reveal patient has acute pancreatitis with lipase in the 400s. d-dimer was elevated and patient had a CT angiogram which ruled out PE. AST and ALTs were elevated as well, patient admits to drinking 6-[address] of the abdomen and pelvis showed somewhat heterogeneous pattern can be associated with hepatocellular disease, left renal cyst, with no hydronephrosis, severe degenerative disc disease, bilateral infiltrate and small effusion. Patient will be admitted with cardiology consult. 05/29: Patient evaluated sitting on edge of bed eating breakfast this morning. Reports that he is doing well, denies any abdominal pain today. Liver enzymes remain elevated AST 66 ALTs 137, patient denies being a heavy drinker admitted to 6-12 beers a week. Consult for Dr. Trevon Beltre in place. White blood cells 2.0 hemoglobin 9.7, sodium 139 potassium 3.2 BUN 23 creatinine 1.24. Abdominal ultrasound revealed gallbladder shows improved distention no intraluminal gallstones noted diffuse fatty infiltration of liver rate demonstrated. EF was 55-60%, mild AR and TR present with moderate pulmonary hypertension no perica rdial effusion. Vital signs remained stable, patient afebrile pulse rate 79, respirations 18, blood pressure 143/80, pulse ox 95% on room air. 05/30: Patient evaluated sitting in bedside chair this morning. Reports feeling good in asking about discharge. Discussed with patient abnormal blood counts and we will consult hematology for evaluation, due to unexplained leukopenia and positive blast cells. Dr. Walker did see patient yesterday hepatitis panel is pending. Manual peripheral smear ordered today. Plan for discharge home tomorrow, even possibly later today after evaluated by hematology pending testing results. Constitutional: Denies weight gain, Denies chills, Denies chronic headaches, Denies lethargy, Denies malaise, Denies weakness Eyes: right loss of vision (Secondary to nail in the right eye followed by a retinal detachment years later.) Ears, nose, mouth and throat: denies vertigo, Denies dysphagia, Denies neck lump, Denies sore throat Cardiovascular: Reports decreased exercise tolerance, Reports dyspnea on exertion, denies lightheadedness, Denies chest pain, Denies orthopnea, Denies rapid heart beat, Denies shortness of breath, Denies syncope Respiratory: denies sleep apnea, Reports snoring, Denies congestion, Denies cough, Denies cough with sputum, Denies home oxygen, Denies wheezing Gastrointestinal: Denies abdominal pain, Denies heartburn, Denies loss of appetite, Denies melena, Denies nausea, Denies vomiting Genitourinary: Reports nocturia, Denies dysuria Musculoskeletal: Denies myalgias Integumentary: Denies pruritus, Denies rash Neurological: denies numbness or tingling Denies change in speech, Denies confusion, Denies gait dysfunction, Denies migraines, Denies motor disturbance, Denies transient paralysis, Denies tremors, Denies vertigo, Denies weakness, Denies visual changes Psychiatric: Denies anxiety, Denies depression Endocrine: Denies fatigue, Denies weight change Physical Exam - Constitutional General appearance: obese - EENT Eyes: anicteric sclerae, EOMI, PERRLA, no ptosis, no scleral icterus, normal appearance ENT: hearing grossly normal, NA/AT, normal oropharynx, no thrush Ears: bilateral: normal - Neck Neck: no lymphadenopathy, normal ROM, no rigidity, no stridor, no thyromegaly Carotids: left: upstroke delayed Thyroid: bilateral: normal size - Respiratory Respiratory: bilateral: diminished, negative: dullness, rales, rhonchi, wheezing, prolonged expiration, prolonged inspiration - Cardiovascular Rhythm: irregular rate and rhythm, controlled Heart sounds: S1, S2 Abnormal Heart Sounds: systolic murmur, no S3 Gallop, no S4 Gallop, no click - Gastrointestinal General gastrointestinal: normal bowel sounds, soft, no splenomegaly, no tenderness, no umbilical hernia, no ventral hernia - Integumentary Integumentary: normal, normal turgor - Neurologic Neurologic: CNII-XII intact - Musculoskeletal Musculoskeletal: gait normal, strength equal bilaterally - Psychiatric Psychiatric: A&O x's 3, appropriate affect, intact judgment & insight Objective - Vital Signs Vital signs: Vital Signs Temp 98.6 F 05/30/20 08:00 Pulse 85 05/30/20 08:00 Resp 18 05/30/20 08:00 BP 140/76 05/30/20 08:00 Pulse Ox 96 05/30/20 08:00 Intake & Output 05/29/20 05/30/20 05/30/20 18:59 06:59 18:59 Intake Total 240 Output Total 1075 1000 Balance -835 -1000 Weight 100.1 kg 98.6 kg Intake: Oral 240 Output: Urine 1075 1000 Other: Voiding Method Urinal # Voids 4 1 - Labs CBC & Chem 7: 05/29/20 07:15 05/29/20 07:15 Labs: Abnormal Lab Results - Last 24 Hours (Table) 05/29/20 05/29/20 05/29/20 Range/Units 07:15 11:50 16:57 WBC 2.0 L (3.8-10.6) k/uL RBC 2.80 L (4.30-5.90) m/uL Hgb 9.7 L (13.0-17.5) gm/dL Hct 29.3 L (39.0-53.0) % MCV 104.8 H (80.0-100.0) fL Blast Cells % 4 H* % Neutrophils # (Manual) 0.74 L (1.3-7.7) k/uL Blast Cells # (Man) 0.08 H (0) k/uL Retic Count (0.5-2.0) % POC Glucose (mg/dL) 310 H 104 H (75-99) mg/dL 05/29/20 05/30/20 05/30/20 Range/Units 21:12 06:00 09:09 WBC (3.8-10.6) k/uL RBC (4.30-5.90) m/uL Hgb (13.0-17.5) gm/dL Hct (39.0-53.0) % MCV (80.0-100.0) fL Blast Cells % % Neutrophils # (Manual) (1.3-7.7) k/uL Blast Cells # (Man) (0) k/uL Retic Count 4.1 H (0.5-2.0) % POC Glucose (mg/dL) 283 H 167 H (75-99) mg/dL Assessment and Plan Assessment: 1. Acute CHF. chest x-ray showed mild pulmonary congestion, consistent with minimal heart failure. Continue 40 mg IV Lasix every 12 hours. Cardiology on consult and echo ordered. EF was 55-60%. 2. A. fib with RVR. likely related to underlying sleep apnea, history of insomnia with restless leg. Rate currently controlled on by Bystolic and Xarelto for anticoagulation. 3. Acute pancreatitis. lipase 485 on admission trending down 4. Diabetes mellitus type 2. hold metformin 500 at this time. continue tradjenta 5 mg daily and sliding scale insulin for now. 5. History of CVA in the past. continue aspirin 325 daily and Lipitor 80 mg at bed. 6. Hypertension and hypertensive cardiovascular disease. Continue patient on losartan 100 mg orally once every day, amlodipine 10 mg orally once every day. 7. Hyperlipidemia. Lipitor on hold 8. 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 9. DVT prophylaxis. on Xarelto 10. GI prophylaxis. Continue PPI. 11. Leukopenia and anemia. Uncertain etiology, consult for hematology ordered. 12. Transaminitis: Ultrasound showed possible fatty liver disease and consult for Dr. Trevon Beltre. Hepatitis panel is pending and Lipitor is on hold at this point. 13: Hypokalemia: Potassium is being replaced per protocol Patient is full code. Patient will be admitted to the hospital for minimum of 2 night stay. Impression and plan of care have been directed as dictated by the signing physician. Stacie Pak nurse practitioner acting as scribe for signing physician.
[2020-05-30 10:14] LABS: INR 1.1 (<1.2); Prothrombin Time 10.9 sec (9.0-12.0)
[2020-05-30 10:48] LABS: Albumin 3.4 g/dL (3.5-5.0); Calcium 7.9 mg/dL (8.4-10.2); Potassium 3.2 mmol/L (3.5-5.1); Total Bilirubin 0.7 mg/dL (0.2-1.3); Total Protein 5.8 g/dL (6.3-8.2)
[2020-05-30 11:04] LABS: Eosinophils # (M) 0.09 k/uL (0-0.7); Metamyelocytes # (M) 0.02 k/uL (0); Metamyelocytes % 1 %; Neutrophils # (M) 0.99 k/uL (1.3-7.7); Neutrophils % (M) 43 %; Nucleated Red Blood Cells 0 /100 WBC (0-0); Total Cells Counted 100
[2020-05-30 11:10] LABS: Poikilocytosis (M) Present
[2020-05-30 11:45] LABS: Glucose,Whole Blood 196 mg/dL (75-99)
--- NOTE | 2020-05-30 14:43 | P.CONS ---
History of Present Illness - Reason for Consult Consult date: 05/30/20 Leukopenia Requesting physician: Roberto Manzo - Chief Complaint Pulsations in his abdomen - History of Present Illness Mr. Gillespie is a very pleasant 75-year-old male who came to the emergency department with complaints of feeling pulsations in the center of his abdomen. He states that a while back he was sick for a few days and was seen by his primary care Dr. Pelaez and told that he may have a new arrhythmia. He thought that he was experiencing was symptoms of the same so, he came in to the hospital. He had a CT showing no PE, lung markings most consistent with CHF. Echo performed atrial fibrillation with an ejection fraction of 55-60%. CT of the abdomen and pelvis hepatocellular disease, with a heterogenous pattern, renal cysts, small bilateral pleural effusions. Abdominal ultrasound redemonstrating [place] bilateral pleural effusions, fatty liver, IVC was within normal limits. On routine CBC, patient was found to have a white count of 2.3, ANC and ALC slightly low, 4% blasts noted in the periphery, mildly anemic with a hemoglobin 10, macrocytosis noted, platelet count 268,000. Patient denies any previous history of low blood cell counts. Patient is very active in fact, he was just recently hunting in [place], he is very active, he denies changes in his energy levels, he's noted about a 3 pound weight loss in the past couple of weeks, he denies sweats, lymph node swellings, no new pains, night sweats, difficulty swallowing, indigestion, heartburn, nausea, vomiting, no shortness of breath, cough, abdominal distention, acute changes in bowel or bladder habits, he has had a colonoscopy, he has had his prostate examined. He has no personal history of malignancy other than some skin cancers treated surgically and topically. He feels overall, he is in very good health. 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 afib History of Any Multi-Drug Resistant Organisms: None Reported Past Surgical History: Back Surgery, Bladder Surgery, Hernia Repair, Orthopedic Surgery Additional Past Surgical History / Comment(s): eye surgery -left eye- metal sutures, 2013 excised lt eye lid lesion with rhomboid advancement flap closure, rt inguinal hernia repair, colonoscopy, lamenectomy, skin cancer removals. Past Anesthesia/Blood Transfusion Reactions: No Reported Reaction Past Psychological History: No Psychological Hx Reported Additional Psychological History / Comment(s): pt is retired,lives at home with his , is independant. Smoking Status: Never smoker Past Alcohol Use History: Occasional Additional Past Alcohol Use History / Comment(s): Pt states he drinks beer or rum/coke but less than 7 a week. Past Drug Use History: None Reported - Past Family History Sister(s) Family Medical History: No Reported History Son(s) Family Medical History: No Reported History Father Family Medical History: Myocardial Infarction ([place]) Additional Family Medical History / Comment(s): age 59 from [place] Mother Family Medical History: Coronary Artery Disease (CAD), Diabetes Mellitus Additional Family Medical History / Comment(s): cabg Medications and Allergies Home Medications Medication Instructions Recorded Confirmed Type Zolpidem Tartrate [Ambien] 10 mg PO HS PRN 10/31/14 05/28/20 History amLODIPine BESYLATE [Norvasc] 10 mg PO DAILY 10/31/14 05/28/20 History Bisoprolol-Hctz 5-6.25 mg [Ziac 1 tab PO DAILY 03/25/15 05/28/20 History 5-6.25 MG] Cholecalciferol [Vitamin D3 (25 1,000 unit PO DAILY 05/18/19 05/28/20 History Mcg = 1000 Iu)] Losartan Potassium 100 mg PO DAILY 05/18/19 05/28/20 History Potassium Chloride ER [K-Dur 20] 20 meq PO DAILY 05/18/19 05/28/20 History Aspirin 81 mg PO DAILY 05/28/20 05/28/20 History Atorvastatin [Lipitor] 80 mg PO HS 05/28/20 05/28/20 History Cyanocobalamin (Vitamin B-12) 1,000 mcg PO DAILY 05/28/20 05/28/20 History [Vitamin B-12] Folic Acid 1 mg PO DAILY 05/28/20 05/28/20 History Nebivolol HCl [Bystolic] 10 mg PO HS 05/28/20 05/28/20 History Rivaroxaban [Xarelto] 20 mg PO HS 05/28/20 05/28/20 History Ubidecarenone [Co Q-10] 300 mg PO HS 05/28/20 05/28/20 History metFORMIN HCL [metFORMIN HCL ER] 500 mg PO BID 05/28/20 05/28/20 History sitaGLIPtin [Januvia] 100 mg PO DAILY 05/28/20 05/28/20 History Allergies Allergy/AdvReac Type Severity Reaction Status Date / Time venom-wasp [wasp venom] Allergy Swelling Verified 05/28/20 08:22 Physical Exam Vitals: Vital Signs Temp Pulse Resp BP Pulse Ox 05/30/20 11:12 97.6 F 83 18 148/67 96 05/30/20 08:00 98.6 F 85 18 140/76 96 05/30/20 04:00 98.2 F 75 17 141/64 96 05/30/20 00:00 98.2 F 82 17 119/62 96 05/29/20 20:00 98.0 F 97 17 131/62 97 05/29/20 16:00 71 05/29/20 15:48 98.1 F 71 18 141/65 95 Intake and Output 05/29/20 05/30/20 05/30/20 22:59 06:59 14:59 Intake Total 240 Output Total 1000 Balance 240 -1000 Intake: Oral 240 Output: Urine 1000 Other: Voiding Method Urinal Urinal # Voids 4 1 Weight 98.6 kg - Constitutional General appearance: average body habitus, cooperative, no acute distress - EENT Eyes: anicteric sclerae, EOMI ENT: hearing grossly normal, normal oropharynx - Neck Neck: no lymphadenopathy - Respiratory Respiratory: bilateral: CTA - Cardiovascular Rhythm: irregularly irregular Heart sounds: normal: S1, S2 Abnormal Heart Sounds: no systolic murmur, no diastolic murmur, no rub, no S3 Gallop, no S4 Gallop, no click, no other leg Peripheral Edema: bilateral: None - Gastrointestinal General gastrointestinal: no absent bowel sounds, no decreased bowel sounds, no distended, no hepatomegaly, no hyperactive bowel sounds, normal bowel sounds, no organomegaly, no rigid, no scaphoid, soft, no splenomegaly, no tenderness, no umbilical hernia, no ventral hernia - Integumentary Multiple scars on the face from skin cancer removals Integumentary: normal turgor - Neurologic Neurologic: CNII-XII intact - Musculoskeletal Musculoskeletal: strength equal bilaterally - Psychiatric Psychiatric: A&O x's 3, appropriate affect, intact judgment & insight Results CBC & Chem 7: 05/30/20 09:09 05/30/20 09:09 Labs: Abnormal Lab Results - Last 24 Hours (Table) 05/29/20 05/29/20 05/30/20 Range/Units 16:57 21:12 06:00 WBC (3.8-10.6) k/uL RBC (4.30-5.90) m/uL Hgb (13.0-17.5) gm/dL Hct (39.0-53.0) % MCV (80.0-100.0) fL Neutrophils # (Manual) (1.3-7.7) k/uL Lymphocytes # (Manual) (1.0-4.8) k/uL Metamyelocytes # (Man) (0) k/uL ESR (0-15) mm/hr Retic Count (0.5-2.0) % Potassium (3.5-5.1) mmol/L Carbon Dioxide (22-30) mmol/L BUN (9-20) mg/dL Glucose (74-99) mg/dL POC Glucose (mg/dL) 104 H 283 H 167 H (75-99) mg/dL Calcium (8.4-10.2) mg/dL ALT (4-49) U/L Total Protein (6.3-8.2) g/dL Albumin (3.5-5.0) g/dL 05/30/20 05/30/20 05/30/20 Range/Units 09:09 09:09 09:09 WBC 2.3 L (3.8-10.6) k/uL RBC 2.98 L (4.30-5.90) m/uL Hgb 10.0 L (13.0-17.5) gm/dL Hct 30.8 L (39.0-53.0) % MCV 103.6 H (80.0-100.0) fL Neutrophils # (Manual) 0.99 L (1.3-7.7) k/uL Lymphocytes # (Manual) 0.90 L (1.0-4.8) k/uL Metamyelocytes # (Man) 0.02 H (0) k/uL ESR 121 H (0-15) mm/hr Retic Count 4.1 H (0.5-2.0) % Potassium 3.2 L (3.5-5.1) mmol/L Carbon Dioxide 31 H (22-30) mmol/L BUN 24 H (9-20) mg/dL Glucose 227 H (74-99) mg/dL POC Glucose (mg/dL) (75-99) mg/dL Calcium 7.9 L (8.4-10.2) mg/dL ALT 114 H (4-49) U/L Total Protein 5.8 L (6.3-8.2) g/dL Albumin 3.4 L (3.5-5.0) g/dL 05/30/20 Range/Units 11:43 WBC (3.8-10.6) k/uL RBC (4.30-5.90) m/uL Hgb (13.0-17.5) gm/dL Hct (39.0-53.0) % MCV (80.0-100.0) fL Neutrophils # (Manual) (1.3-7.7) k/uL Lymphocytes # (Manual) (1.0-4.8) k/uL Metamyelocytes # (Man) (0) k/uL ESR (0-15) mm/hr Retic Count (0.5-2.0) % Potassium (3.5-5.1) mmol/L Carbon Dioxide (22-30) mmol/L BUN (9-20) mg/dL Glucose (74-99) mg/dL POC Glucose (mg/dL) 196 H (75-99) mg/dL Calcium (8.4-10.2) mg/dL ALT (4-49) U/L Total Protein (6.3-8.2) g/dL Albumin (3.5-5.0) g/dL Comments: Echo report reviewed CT scan - abdomen: report reviewed CT scan - chest: report reviewed (No PE) CT scan - pelvis: report reviewed US - abdomen: report reviewed Assessment and Plan (1) Leukopenia Current Visit: Yes Status: Acute Priority: High Code(s): D72.819 - DECREASED WHITE BLOOD CELL COUNT, UNSPECIFIED SNOMED Code(s): 51143151 (2) Macrocytic anemia Current Visit: Yes Status: Acute Priority: High Code(s): D53.9 - NUTRITIONAL ANEMIA, UNSPECIFIED SNOMED Code(s): 90289221 Plan: In chart review patient's bicytopenia is of very new onset, peripheral blasts of 4% noted. Though counts are low, there is no acute intervention. Multiple labs have been drawn to evaluate bicytopenia. Flow cytometry has already been requested, pending results, to further evaluate the possibility of blasts in the periphery. I reviewed with patient that we are working him up with just labs at this time to see if we can find the underlying cause to his new onset bicytopenia. Point to him that if we do not find an underlying cause through this testing, a bone marrow biopsy and aspirate is likely going to be recommended. He verbalized understanding. His okay with the plan as is. From a Hematology standpoint pt is ok for DC, once cleared by Attending and Consulting Physicians. Hematology will follow up with him in the outpatient setting for lab results-as these take 48-72 hours to return, CBC monitoring, and possibly a bone marrow biopsy if warranted
--- NOTE | 2020-05-30 15:50 | P.PN ---
Subjective Progress Note Date: 05/30/20 Principal diagnosis: Elevated LFTs Is is a 75-year-old pleasant white male who is minute to the hospital with some shortness of breath and not with feeling well for the last 2-3 days duration. He went disease primary care physician and was noted to have a new onset atrial fibrillation was sent to the emergency room for further evaluation. During his hospitalization he was noted have elevated LFTs. The patient today states he has no abdominal pain, no nausea, and no vomiting. He has been having normal bowel movements. He denies any chest pain or shortness of breath at this time. Objective - Vital Signs Vital signs: Vital Signs Temp 96.6 F L 05/30/20 15:16 Pulse 70 05/30/20 15:16 Resp 18 05/30/20 15:16 BP 119/65 05/30/20 15:16 Pulse Ox 94 L 05/30/20 15:16 Intake & Output 05/29/20 05/30/20 05/30/20 18:59 06:59 18:59 Intake Total 240 Output Total 1075 1000 Balance -835 -1000 Weight 100.1 kg 98.6 kg Intake: Oral 240 Output: Urine 1075 1000 Other: Voiding Method Urinal # Voids 4 1 - Exam General appearance: The patient is alert, oriented, in no acute distress. HET: Head is normocephalic and atraumatic. Conjunctiva pink.. Sclera anicteric. Neck: Supple without lymphadenopathy. Abdomen: Soft, nontender, nondistended with bowel sounds. Extremities: Normal skin color and turgor. No Pedal edema. Neurological: No focal deficits. Alert and oriented 3. - Labs CBC & Chem 7: 05/30/20 09:09 05/30/20 09:09 Labs: Abnormal Lab Results - Last 24 Hours (Table) 05/29/20 05/29/20 05/30/20 Range/Units 16:57 21:12 06:00 WBC (3.8-10.6) k/uL RBC (4.30-5.90) m/uL Hgb (13.0-17.5) gm/dL Hct (39.0-53.0) % MCV (80.0-100.0) fL Neutrophils # (Manual) (1.3-7.7) k/uL Lymphocytes # (Manual) (1.0-4.8) k/uL Metamyelocytes # (Man) (0) k/uL ESR (0-15) mm/hr Retic Count (0.5-2.0) % Potassium (3.5-5.1) mmol/L Carbon Dioxide (22-30) mmol/L BUN (9-20) mg/dL Glucose (74-99) mg/dL POC Glucose (mg/dL) 104 H 283 H 167 H (75-99) mg/dL Calcium (8.4-10.2) mg/dL ALT (4-49) U/L Total Protein (6.3-8.2) g/dL Albumin (3.5-5.0) g/dL 05/30/20 05/30/20 05/30/20 Range/Units 09:09 09:09 09:09 WBC 2.3 L (3.8-10.6) k/uL RBC 2.98 L (4.30-5.90) m/uL Hgb 10.0 L (13.0-17.5) gm/dL Hct 30.8 L (39.0-53.0) % MCV 103.6 H (80.0-100.0) fL Neutrophils # (Manual) 0.99 L (1.3-7.7) k/uL Lymphocytes # (Manual) 0.90 L (1.0-4.8) k/uL Metamyelocytes # (Man) 0.02 H (0) k/uL ESR 121 H (0-15) mm/hr Retic Count 4.1 H (0.5-2.0) % Potassium 3.2 L (3.5-5.1) mmol/L Carbon Dioxide 31 H (22-30) mmol/L BUN 24 H (9-20) mg/dL Glucose 227 H (74-99) mg/dL POC Glucose (mg/dL) (75-99) mg/dL Calcium 7.9 L (8.4-10.2) mg/dL ALT 114 H (4-49) U/L Total Protein 5.8 L (6.3-8.2) g/dL Albumin 3.4 L (3.5-5.0) g/dL 05/30/20 Range/Units 11:43 WBC (3.8-10.6) k/uL RBC (4.30-5.90) m/uL Hgb (13.0-17.5) gm/dL Hct (39.0-53.0) % MCV (80.0-100.0) fL Neutrophils # (Manual) (1.3-7.7) k/uL Lymphocytes # (Manual) (1.0-4.8) k/uL Metamyelocytes # (Man) (0) k/uL ESR (0-15) mm/hr Retic Count (0.5-2.0) % Potassium (3.5-5.1) mmol/L Carbon Dioxide (22-30) mmol/L BUN (9-20) mg/dL Glucose (74-99) mg/dL POC Glucose (mg/dL) 196 H (75-99) mg/dL Calcium (8.4-10.2) mg/dL ALT (4-49) U/L Total Protein (6.3-8.2) g/dL Albumin (3.5-5.0) g/dL Assessment and Plan Assessment: 1. Mild elevation of serum transaminases noted during this hospitalization in this patient with no abdominal symptoms. Total bilirubin and alkaline phosphatase are within normal limits. He states he was recently started on statins for hypercholesterolemia and possibility of medication-induced hepatitis needs to be considered. Other etiologies cannot be excluded it appears patient does not have any history of chronic liver disease and no history of significant alcohol abuse. Ultrasound and computed tomography scan show evidence of heterogeneous appearing liver, probably suggestive of fatty infiltration. 2. Long-standing history of diabetes mellitus 3. Hypertension 4. Hyperlipidemia 5. New onset atrial fibrillation. Cardiology following the patient closely 6. Blast cells, hematology have been consulted Plan: 1. Hepatitis serologies obtained, results pending 2. Repeat LFTs in the morning 3. Old age atorvastatin 4. Will monitor LFTs on a close basis 5. We will follow with you closely The impression and plan of care has been dictated as directed. Dr. Trevon Beltre I performed a history and examination of this patient, discussed the same with the dictator. I agree with the dictator's note ,documented as a scribe. Any additional findings or plans will be noted.
[2020-05-30 16:49] LABS: Glucose,Whole Blood 215 mg/dL (75-99)
--- NOTE | 2020-05-30 16:51 | PN ---
PROGRESS NOTE Mr. Gillespie is a 75-year-old male who presented with symptoms of dyspnea. He was in atrial fibrillation. He is feeling better today. He could not sleep well yesterday. He denies any dizziness, palpitation. He had a prior history of cerebrovascular accident, history of hypertension, hyperlipidemia, and diabetes mellitus. He was complaining of some abdominal discomfort and abdominal spasm. He was noted to have bicytopenia. Workup is in progress. The patient had abnormal liver function test. He had an echocardiogram that showed a preserved ventricular size and systolic function. He continues to be on Lasix 40 mg IV q.12 hours, aspirin 81 mg daily, amlodipine 10 mg daily, Tradjenta, Cozaar 100 mg daily, Bystolic 10 mg daily, and Xarelto 20 mg daily. PHYSICAL EXAMINATION: Blood pressure running in the 140s with a heart rate in the 80s. LUNGS: Clear. HEART: Irregular regular. S1, S2. No S3. No rub. ABDOMEN: Soft, nontender. EXTREMITIES: No edema. LAB DATA: BUN and creatinine 24 and 1.21. His ALT is 114, AST is 41, and that is improving compared to yesterday. His potassium is 3.2, BUN and creatinine 24 and 1.21. His hemoglobin is 10, white blood cells up to 2.3. His retic count is 4.1. IMPRESSION: 1. Atrial fibrillation with controlled ventricular response, anticoagulated. 2. Mild fluid overload with preserved systolic function, improving. 3. Abnormal liver function test, workup in progress. 4. History of diabetes. 5. Hypertension. 6. Hyperlipidemia. 7. Prior history of stroke. RECOMMENDATION: I will switch him to oral diuretics, continue his medical regimen. From the cardiac standpoint, he is stable to be discharged home and he will be followed up as an outpatient. MMODL / IJN: [id number] /
[2020-05-30 20:11] LABS: Glucose,Whole Blood 230 mg/dL (75-99)
[2020-05-30 20:44] LABS: Hepatitis A Antibody IgM Non-Reactive (Non-Reactive); Hepatitis B Core IgM Non-Reactive (Non-Reactive); Hepatitis B Surface Antigen Non-Reactive (Non-Reactive); Hepatitis C IgG Antibody Non-Reactive (Non-Reactive)
[2020-05-30] MEDS: NEBIVOLOL 5 MG TAB PO SCH (21:07)
[2020-05-30] MEDS: FUROSEMIDE 20 MG TAB PO SCH (21:07)
[2020-05-30] MEDS: RIVAROXABAN 20 MG TAB PO SCH (21:07)
[2020-05-31 06:25] LABS: Glucose,Whole Blood 179 mg/dL (75-99)
[2020-05-31] MEDS: INSULIN ASPART (NovoLOG) 100 UNIT/ML VIAL SQ SCH (06:58)
[2020-05-31 08:24] VITALS: BP 134/74; PULSE 81; RESP 18; TEMP 97.8
[2020-05-31] MEDS: CYANOCOBALAMIN 500 MCG TAB PO SCH (08:25)
[2020-05-31] MEDS: FOLIC ACID 1 MG TAB PO SCH (08:25)
[2020-05-31] MEDS: LINAGLIPTIN 5 MG TABLET PO SCH (08:25)
[2020-05-31] MEDS: LOSARTAN 50 MG TAB PO SCH (08:25)
[2020-05-31] MEDS: ASPIRIN 81 MG PO SCH (08:25)
[2020-05-31] MEDS: FAMOTIDINE 20 MG TAB PO SCH (08:25)
[2020-05-31] MEDS: CHOLECALCIFEROL 1,000 UNIT TAB PO SCH (08:25)
[2020-05-31] MEDS: FUROSEMIDE 20 MG TAB PO SCH (08:25)
[2020-05-31] MEDS: POTASSIUM CHLORIDE ER 20 MEQ TAB.ER PO SCH (08:26)
[2020-05-31] MEDS: amLODIPine 10 MG TAB PO SCH (08:26)
--- NOTE | 2020-05-31 09:40 | P.DS ---
Providers Date of admission: 05/30/20 12:58 Expected date of discharge: 05/31/20 Attending physician: Sebastian Huynh MD Consults: 05/28/20 06:00 Consult Physician Routine Consulting Provider: [facility] Consult Reason/Comments: new afib, new heart failure Do you want consulting provider notified?: Yes, Notify in am 05/28/20 09:13 Consult Physician Routine Consulting Provider: Eddie Woo Consult Reason/Comments: CHF, A fib Do you want consulting provider notified?: Yes 05/29/20 09:30 Consult Physician Routine Consulting Provider: Rylie Beltre Consult Reason/Comments: Elevated AST\ALT Do you want consulting provider notified?: Yes 05/30/20 08:54 Consult Physician Routine Consulting Provider: Herman Andres Consult Reason/Comments: Leukopenia Do you want consulting provider notified?: Yes Primary care physician: [facility] Course: This is a 75-year-old male of Dr. Schmid with previous known medical history significant for hypertension, CVA/TIA, hyperlipidemia, diabetes mellitus type 2, enlarged prostate, insomnia, obesity, skin cancer. patient presented to Dr. Schmid's office yesterday with generalized feelings of not feeling well mild shortness of breath and abdominal pain. Patient was found to be in A. fib which was new for him, patient was started on bystolic and xarelto with a referral to cardiology. Later on that evening patient drink tonic water for restless leg and developed abdominal generalized abdominal pain and stomach spasms then presented to the emergency room. Patient remains in A. fib, rate is controlled in the 80s at this time. Labs reveal patient has acute pancreatitis with lipase in the 400s. d-dimer was elevated and patient had a CT angiogram which ruled out PE. AST and ALTs were elevated as well, patient admits to drinking 6-[address] of the abdomen and pelvis showed somewhat heterogeneous pattern can be associated with hepatocellular disease, left renal cyst, with no hydronephrosis, severe degenerative disc disease, bilateral infiltrate and small effusion. Patient will be admitted with cardiology consult. 05/29: Patient evaluated sitting on edge of bed eating breakfast this morning. Reports that he is doing well, denies any abdominal pain today. Liver enzymes remain elevated AST 66 ALTs 137, patient denies being a heavy drinker admitted to 12 beers a week. Consult for Dr. Trevon Beltre in place. White blood cells 2.0 hemoglobin 9.7, sodium 139 potassium 3.2 BUN 23 creatinine 1.24. Abdominal ultrasound revealed gallbladder shows improved distention no intraluminal gallstones noted diffuse fatty infiltration of liver rate demonstrated. EF was 55-60%, mild AR and TR present with moderate pulmonary hypertension no per icardial effusion. Vital signs remained stable, patient afebrile pulse rate 79, respirations 18, blood pressure 143/80, pulse ox 95% on room air. 05/30: Patient evaluated sitting in bedside chair this morning. Reports feeling good in asking about discharge. Discussed with patient abnormal blood counts and we will consult hematology for evaluation, due to unexplained leukopenia and positive blast cells. Dr. Walker did see patient yesterday hepatitis panel is pending. Manual peripheral smear ordered today. Plan for discharge home tomorrow, even possibly later today after evaluated by hematology pending testing results. 05/31: Patient evaluated at bedside this morning reports doing well, did see hematology yesterday, plan to follow-up as outpatient. Patient might require bone marrow biopsy. Otherwise patient is stable for discharge today, vital signs are stable. Plan to go home with self-care. Discharge diagnosis 1. Acute CHF. 2. A. fib with RVR. 3. Acute pancreatitis. 4. Diabetes mellitus type 2. 5. History of CVA in the past. 6. Hypertension and hypertensive cardiovascular disease. 7. Hyperlipidemia. 8. Right eye blindness 9. Leukopenia and anemia. Uncertain etiology, consult for hematology ordered. 10. Transaminitis: 11: Hypokalemia: Patient Condition at Discharge: Good Plan - Discharge Summary Discharge Rx Participant: No New Discharge Prescriptions: New Furosemide [Lasix] 20 mg PO BID #60 tab Continue RX: amLODIPine BESYLATE [Norvasc] 10 mg PO DAILY RX: Zolpidem Tartrate [Ambien] 10 mg PO HS PRN PRN Reason: Insomnia RX: Potassium Chloride ER [K-Dur 20] 20 meq PO DAILY RX: Losartan Potassium 100 mg PO DAILY RX: Cholecalciferol [Vitamin D3 (25 Mcg = 1000 Iu)] 1,000 unit PO DAILY RX: Ubidecarenone [Co Q-10] 300 mg PO HS RX: sitaGLIPtin [Januvia] 100 mg PO DAILY RX: Rivaroxaban [Xarelto] 20 mg PO HS RX: Nebivolol HCl [Bystolic] 10 mg PO HS RX: Folic Acid 1 mg PO DAILY RX: metFORMIN HCL [metFORMIN HCL ER] 500 mg PO BID RX: Atorvastatin [Lipitor] 80 mg PO HS RX: Aspirin 81 mg PO DAILY RX: Cyanocobalamin (Vitamin B-12) [Vitamin B-12] 1,000 mcg PO DAILY Discontinued RX: Bisoprolol-Hctz 5-6.25 mg [Ziac 5-6.25 MG] 1 tab PO DAILY Discharge Medication List RX: Zolpidem Tartrate [Ambien] 10 mg PO HS PRN 10/31/14 [History] RX: amLODIPine BESYLATE [Norvasc] 10 mg PO DAILY 10/31/14 [History] RX: Cholecalciferol [Vitamin D3 (25 Mcg = 1000 Iu)] 1,000 unit PO DAILY 05/18/19 [History] RX: Losartan Potassium 100 mg PO DAILY 05/18/19 [History] RX: Potassium Chloride ER [K-Dur 20] 20 meq PO DAILY 05/18/19 [History] RX: Aspirin 81 mg PO DAILY 05/28/20 [History] RX: Atorvastatin [Lipitor] 80 mg PO HS 05/28/20 [History] RX: Cyanocobalamin (Vitamin B-12) [Vitamin B-12] 1,000 mcg PO DAILY 05/28/20 [History] RX: Folic Acid 1 mg PO DAILY 05/28/20 [History] RX: Nebivolol HCl [Bystolic] 10 mg PO HS 05/28/20 [History] RX: Rivaroxaban [Xarelto] 20 mg PO HS 05/28/20 [History] RX: Ubidecarenone [Co Q-10] 300 mg PO HS 05/28/20 [History] RX: metFORMIN HCL [metFORMIN HCL ER] 500 mg PO BID 05/28/20 [History] RX: sitaGLIPtin [Januvia] 100 mg PO DAILY 05/28/20 [History] Furosemide [Lasix] 20 mg PO BID #60 tab 05/31/20 [Rx] Follow up Appointment(s)/Referral(s): Fahad Perales MD [STAFF PHYSICIAN] - 1 Week Aki Pelaez DO [Primary Care Provider] - 1-2 days Activity/Diet/Wound Care/Special Instructions: Per Abi Gonzalez [employer] patient is cleared for discharge from their stand point to f/u once labs are drawn Discharge Disposition: HOME SELF-CARE
--- NOTE | 2020-05-31 10:52 | CDI ---
Documentation Clarification Form Date: 05/31/2020 10:41:24 AM From: Kari MillerLongoriaKETAN, CCDS Admit Date: 05/30/2020 12:58:00 PM Patient Name: Marlon Gillespie Visit Number: [id number] Discharge Date: ATTENTION: The Clinical Documentation Specialists (CDI) and [facility] Coding Staff appreciate your assistance in clarifying documentation. Please respond to the clarification below the line at the bottom and electronically sign. The CDI & [facility] Coding staff will review the response and follow-up if needed. Please note: Queries are made part of the Legal Health Record. If you have any questions, please contact the author of this message via ITS. Dr. Fahad Perales: Atrial Fibrillation is documented in the 05/28 ED Note, 05/28 ECHO, 05/28 History & Physical, 05/29 Cardiology Consult and subsequent progress notes including the Discharge Summary without further specificity. History/Risk Factors: CVA with some speech "change", NIDDM II on po hypoglycemic med, Hypertension, Hyperlipidemia, Sleep Apnea nos. Clinical Indicators: Presented to the ED on 05/28 with SOB, abdominal pain & abdominal spasms, also found to be in new onset Atrial Fibrillation. Recently started Xarelto per PCP. Admitted with new onset Atrial Fibrillation, Heart Failure likely acute systolic per H/P, Hypoxia, Elevated troponins, Elevated Lipase (Acute Pancreatitis per H/P), Transaminitis and Hyperglycemia due to DM II. EKG 05/28: R 94 Atrial fibrillation, Nonspecific ST & T wave abnormality. Treatment: IV Lasix 40 mg q12, Kcl 20 meq po q1hr, po Lipitor, Bystolic, Xarelto and Aspirin. In your professional opinion, can you please clarify the type of Atrial Fibrillation, if known? Chronic/Permanent Paroxysmal Persistent XXXX Other, please specify Unable to determine (Last Revision: November 2017) MTDD
--- NOTE | 2020-05-31 12:14 | PN ---
PROGRESS NOTE Mr. Gillespie is a 75-year-old male who presented with evidence of progressive dyspnea. He has been diagnosed recently with atrial fibrillation. He is feeling better this morning. He has been ambulating. He has no symptoms of PND. No orthopnea. No dizziness. No palpitation. He continues in atrial fibrillation with controlled ventricular response. He denies any dizziness or palpitation. On presentation, he had abnormal liver function tests as well as evidence of leukopenia and anemia. He was evaluated by Dr. Andres and is scheduled to undergo further workup as an outpatient. He continues to be at this time on amlodipine 10 mg daily, aspirin 81 mg daily, Lasix 20 mg twice a day, Tradjenta, Cozaar 100 mg daily, Bystolic 10 mg daily, Xarelto 20 mg daily. PHYSICAL EXAMINATION: Blood pressure 134/70 with the heart in the 80s. LUNGS: Clear. HEART: Irregular, regular. S1, S2. No S3. No rub. ABDOMEN: Soft, obese, nontender. EXTREMITIES: No edema. IMPRESSION: 1. Atrial fibrillation, recently diagnosed, rate controlled with anticoagulated. 2. Heart failure with preserved systolic function, improved. 3. Abnormal liver function test, workup in progress. 4. History of diabetes. 5. Hypertension. 6. Hyperlipidemia. 7. History of stroke. 8. By cytopenia, workup in progress. RECOMMENDATION: Patient should be able to be discharged home today and he will be followed as an outpatient to see if further cardiac workup will be needed. MMODL / IJN: [id number] /
[2020-05-31 21:42] LABS: Protein, Total 5.6 g/dL (6.2-8.2)
[2020-06-01 08:09] LABS: Free Kappa Lt Chain Qnt, Serum 1.58 mg/dL (0.33-1.94)
== END 2020-05-31 10:40 | disposition home or self-care (01) | DRG 291 ==
LOC: EC 03:40 → 3SCARD 06:10 → OBSVTOIN 05-30 12:58
PROVIDERS: ADMIT Internal Medicine; ATTEND Internal Medicine
DX: I11.0 Hypertensive heart disease with heart failure (principal); I50.21 Acute systolic (congestive) heart failure; K85.90 Acute pancreatitis without necrosis or infection, unspecified; I48.19 Other persistent atrial fibrillation; I27.20 Pulmonary hypertension, unspecified; I08.2 Rheumatic disorders of both aortic and tricuspid valves; E11.65 Type 2 diabetes mellitus with hyperglycemia; G25.81 Restless legs syndrome; D72.819 Decreased white blood cell count, unspecified; D53.9 Nutritional anemia, unspecified; K76.0 Fatty (change of) liver, not elsewhere classified; E78.00 Pure hypercholesterolemia, unspecified; E66.9 Obesity, unspecified; E78.5 Hyperlipidemia, unspecified; I69.328 Other speech and language deficits following cerebral infarction; R40.2142 Coma scale, eyes open, spontaneous, at arrival to emergency department; R40.2362 Coma scale, best motor response, obeys commands, at arrival to emergency department; R40.2252 Coma scale, best verbal response, oriented, at arrival to emergency department; R09.02 Hypoxemia; E87.6 Hypokalemia; H54.61 Unqualified visual loss, right eye, normal vision left eye; G47.30 Sleep apnea, unspecified; G47.00 Insomnia, unspecified; N40.0 Benign prostatic hyperplasia without lower urinary tract symptoms; N28.1 Cyst of kidney, acquired; R74.0 Nonspecific elevation of levels of transaminase and lactic acid dehydrogenase [LDH]; R94.5 Abnormal results of liver function studies; Z68.34 Body mass index [BMI] 34.0-34.9, adult; Z79.82 Long term (current) use of aspirin; Z79.84 Long term (current) use of oral hypoglycemic drugs; Z79.01 Long term (current) use of anticoagulants; Z79.899 Other long term (current) drug therapy; Z85.828 Personal history of other malignant neoplasm of skin; Z86.69 Personal history of other diseases of the nervous system and sense organs; Z87.19 Personal history of other diseases of the digestive system; Z87.39 Personal history of other diseases of the musculoskeletal system and connective tissue; Z71.3 Dietary counseling and surveillance; Z98.890 Other specified postprocedural states; Z91.030 Bee allergy status; Z82.49 Family history of ischemic heart disease and other diseases of the circulatory system; Z83.3 Family history of diabetes mellitus
CPT/HCPCS: 36415; 71046; 71275; 74177; 76700; 80053; 80074; 81001; 83690; 83880; 83883; 84165; 84443; 84484; 85025; 85045; 85379; 85610; 85652; 85730; 86334; 93005; 93306; 96361; 96374; 96375; 99285